=== PATIENT | male | born 1980 | race African-American/Black ===

== ENCOUNTER 2025-03-03 11:19 | Inpatient (IN) | payer MEDICAID, SELFPAY ==
[2025-03-03] VITALS (8 sets, daily range): BP systolic 105–142; BP diastolic 67–95; PULSE 73–114; RESP 17–20; TEMP 36.4–36.8; O2SAT 92–99; BMI 21.9
--- NOTE | 2025-03-03 11:27 | XR_ITS ---
Examination: CT abdomen with intravenous contrast CT pelvis with intravenous contrast 2-D coronal reconstructions 2-D sagittal reconstructions Date and time of exam:March 03, 2025 1324 hours INDICATIONS: Vomiting painful urination today. CTDI: vol (mGy) 6.32 DLP: (mGycm) 129 Technique: Multiple axial sections of the abdomen and pelvis have been obtained. 64 slice high-resolution scanner used. 3 mm axial sections have been obtained, post intravenous injection 60 cc [id number] 2-D sagittal, coronal reconstructions obtained. Low dose protocols were performed. One or more of the following dose reduction techniques were used; automated exposure control, adjustment of the mA and/or KV according to patient size, use of iterative reconstruction technique. Findings: Intrahepatic biliary tract dilatation Gallbladder is not diagnostically visualized Spleen is not enlarged No pancreatic mass No renal or ureteral calculi, no hydronephrosis Abundant stool throughout the colon including in the rectal region Mediolateral prostate dimension 5 cm No bladder mass The osseous structures are intact IMPRESSION: Abnormal intrahepatic biliary tract dilatation, recommend hepatobiliary sonography follow-up Gallbladder is not diagnostically visualized Very large amounts of stool throughout the entire colon
--- NOTE | 2025-03-03 11:28 | XR_ITS ---
Examination: AP chest single view Technique one AP portable upright chest single view March 03, 2025 1137 hours INDICATIONS: Chest pain and vomiting today. FINDINGS: Normal heart size Surgical clips upper left mediastinum No aspiration pneumonia or pulmonary edema IMPRESSION: No aspiration pneumonia
--- NOTE | 2025-03-03 11:29 | EDNOTE_ITS ---
<Statement entered by Candy Cardona MD - 03/11/25 06:24> As co-signing physician, I was present and available for consult prn. I concur with the plan and care as documented by the midlevel provider. ED Seizures RME/HPI General Chief Complaint: Seizure Stated Complaint: SEIZURES Time Seen by Provider: 03/03/25 11:24 Arrival date/time: 03/03/25 11:19 RME / HPI RME / HPI Narrative: 44-year-old male patient with significant history of schizoaffective disorder, bipolar type, intellectual disability, diabetes mellitus, type II, seizure disorder, gastroesophageal reflux, came in for evaluation regarding seizure. Onset of symptoms about earlier today as [id number] seizure, each lasting for 3 to 5 minutes according to caregiver. Patient was sitting down when it happened. There was no trauma involved. Patient was given intranasal Valium which totally stopped the seizure. According to patient's MD in [facility], patient has been taking his seizure medication with good compliance. Patient was noted to be having vomiting for the last few weeks, it comes and goes. No fever was noted no diarrhea was noted. Patient also complained of dysuria for several days now. No other complaints noted. On my initial evaluation patient is back to baseline. Related Data Home Medications ?Medication ?Instructions ?Recorded ?Confirmed atorvastatin 40 mg tablet 40 mg PO HS 06/10/18 3 chlorpromazine 100 mg tablet 300 mg PO QHSPRN 06/10/18 10/03/22 diphenhydramine HCl 50 mg capsule 100 mg PO HS 8 10/03/22 Held on 10/06/22. Instructions: Resume on 10/07/22. gabapentin 100 mg capsule 600 mg PO BID 06/10/1810/03 lisinopril 5 mg tablet 5 mg PO QDAY 06/10/18 sitagliptin phosphate 100 mg tablet 100 mg PO QDAY 06/10/18 aripiprazole lauroxil 882 mg/3.2 882 mg Bipolar Disord er 10/03/22 mL suspension, ext.rel. IM syringe divalproex 500 mg tablet,delayed 1,000 mg PO HS 10/03/22 release docusate sodium 100 mg capsule 200 mg PO QHSPRN PRN Ps ychosis 10/03/22 10/03/22 (Colace) quetiapine 50 mg tablet 450 mg PO QHSPRN 10/03/22 Allergies Allergy/AdvReac Type Severity Reaction Status Date / Time ibuprofen Allergy Verified 03/03/25 11:31 Review of Systems Review of Systems Narrative Review of Systems: Review of system reviewed and within normal limits except mentioned in HPI ED Exam Narrative Physical exam: VITAL SIGNS: Reviewed. GENERAL APPEARANCE: Alert and interactive, follows commands, no acute distress, HEAD AND FACE: Non-traumatic. ENT: PERRL, pink conjunctivitis, eyelid no trauma, Mucous membrane moist. NECK: Supple, nontender, no nuchal rigidity. CHEST: No tenderness, no crepitus, no paradoxical movement, no retractions. LUNGS: Clear, well ventilated, symmetric, no rales, no wheezing, no ronchi, no stridor, good breath sounds bilaterally. HEART: Regular rate, regular rhythm, no murmur, no gallops. ABDOMEN: Soft, positive bowel sounds, nondistended, no guarding, nontender, no rebound, no masses, RECTAL: Deferred. GENITAL: Deferred. NEUROLOGICAL: Gross motor function intact sensory function intact, Appropriate for age. MUSCULOSKELETAL: low back nontender, full range of motion. EXTREMITIES: Nontender, full range of motion. SKIN: Color pink, dry, no rash, no lacerations, no abrasions, no contusions. LYMPHATICS: Deferred. Course Quality Measures none Orders Category Date Time Status Bedside COVID-19 Antigen Test NOW Care 03/03/25 11:24 Active COVID-19 Screening Questionnaire NOW Care 03/03/25 15:[address] Screening NOW Care 03/03/25 11:27 Active Decision to Admit X1 Care 03/03/25 15:11 Completed Consult to Gastroenterology Stat Cons 03/03/25 15:[address] abdomen pelvis w con Stat Exams 03/03/25 11:27 Completed US gall bladder Stat Exams 03/03/25 15:03 Completed XR chest 1V Stat Exams 03/03/25 11:28 Completed Acetone [Beta Hydroxybutyrate] Stat Lab 03/03/25 11:46 Completed CBC [CBC] Stat Lab 03/03/25 11:46 Completed CMP [Comprehensive Metabolic Panel] Stat Lab 03/03/25 11:46 Completed Hemoglobin A1C [Glycohemoglobin w (eAG)] Stat Lab 03/03/25 11:46 Completed Lactic Acid [Lactate (Lactic Acid)] Stat Lab 03/03/25 11:46 Completed Lactic Acid, 3 HR Stat Lab 03/03/25 16:43 Completed Misc Send Out* Stat Lab 03/03/25 16:43 Received UA, C/S IF [Urinalysis, C/S if Indicated] Stat Lab 03/03/25 14:11 Completed Famotidine Inj [Pepcid Inj] Med 03/03/25 11:28 Discontinued 20 mg IVP X1 ONE Metoclopramide Inj [Reglan Inj] Med 03/03/25 11:28 Discontinued 10 mg IVP X1 ONE Ringers Lactated 1000 ml [Lactated Ringers] 1,000 ml Med 03/03/25 11:28 Discontinued IV 999 mls/hr Vital Signs Vital signs: Vital Signs Temperature 98.2 F 03/03/25 11:23 Pulse Rate 114 H 03/03/25 11:23 Respiratory Rate 18 03/03/25 11:23 Blood Pressure 106/68 03/03/25 11:23 Pulse Oximetry (%) 97 03/03/25 11:23 Oxygen Delivery Method Room Air 03/03/25 11:23 Seizure MDM Narrative MDM Narrative:: 44-year-old male patient with significant history of schizoaffective disorder, bipolar type, intellectual disability, diabetes mellitus, type II, seizure disorder, gastroesophageal reflux, came in for evaluation regarding seizure. Onset of symptoms about earlier today as [id number] seizure, each lasting for 3 to 5 minutes according to caregiver. Patient was sitting down when it happened. There was no trauma involved. Patient was given intranasal Valium which totally stopped the seizure. According to patient's MD in [facility], patient has been taking his seizure medication with good compliance. Patient was noted to be having vomiting for the last few weeks, it comes and goes. No fever was noted no diarrhea was noted. Patient also complained of dysuria for several days now. No other complaints noted. On my initial evaluation patient is back to baseline. Patient's workup today all came back unremarkable. Except for lactic acid of 6.0, repeat lactic acid was noted to be 3.4. Urinalysis no UTI. Ultrasound of the gallbladder came back unremarkable. Chest x-ray also came back no sign of aspiration pneumonia, CT scan of the abdomen pelvis showed Abnormal intrahepatic biliary tract dilatation, recommend hepatobiliary sonography follow-up Gallbladder is not diagnostically visualized Very large amounts of stool throughout the entire colon Spoke with [facility] MD Dr. Obregon, who requested me to call Dr. Echevarria regarding patient's on and up intractable vomiting which could be the reason for his breakthrough seizure. Spoke with Dr. Echevarria, full time, discussed the case, and advised me to admit the patient for endoscopy in the morning. Patient data External records reviewed:: None Clinical information provided by:: patient Social determinants that could affect healthcare access:: none Patient has the following chronic illnesses:: Schizoaffective disorder bipolar disorder intellectual disability diabetes mellitus seizure disorder How is presenting disease/condition affected by chronic disease/condition?: exacerbated by Evaluation data The following diagnostics were reviewed and interpreted by me:: lab results and radiology exam(s) Lab and/or radiology exams considered but not ordered:: None Interpretation Summary: See results MDM Medications / Prescriptions Medications or Prescriptions considered but not ordered:: None Medication administrations:: Medication Administration History Acetaminophen (Acetaminophen 325 Mg Tablet) 650 mg PO Q6H PRN PRN Reason: Fever >100.5 or pain 1-3 Stop: 04/02/25 16:33 Hydrocodone Bitart/Acetaminophen (Hydrocodone/Apap 5/325 Tablet) 1 tab PO Q4HR PRN PRN Reason: Pain Scale 4-6 (Moderate) Stop: 03/08/25 16:38 Dextrose (Dextrose 50%-Water Inj 50 Ml Syringe) 25 ml IV Q15MIN PRN PRN Reason: BG 50-70 responsive npo pt Stop: 04/02/25 20:27 Dextrose (Dextrose 50%-Water Inj 50 Ml Syringe) 50 ml IV Q15MIN PRN PRN Reason: BG <50 OR BG <70 & pt unresponsive Stop: 04/02/25 20:27 Docusate Sodium (Docusate Sod 100 Mg Capsule) 100 mg PO QDAY PRN; Protocol PRN Reason: CONSTIPATION Stop: 04/02/25 16:38 Glucagon (Glucagon Inj 1 Mg Vial) 1 mg IM Q15MIN PRN PRN Reason: BG <70, and no IV access Ondansetron HCl (Ondansetron Inj 2 Mg/Ml Inj 2 Ml) 4 mg IVP Q6H PRN; Protocol PRN Reason: NAUSEA OR VOMITING Stop: 04/02/25 16:38 Discontinued Medications Famotidine (Famotidine Inj 10 Mg/Ml Vial 2 Ml) 20 mg IVP X1 ONE Stop: 03/03/25 11:29 Last Admin: 03/03/25 12:22 Dose: 20 mg Documented By: CG Lactated Ringer's (Lactated Ringers) 1,000 mls @ 999 mls/hr IV .Q1H1M ONE Stop: 03/03/25 12:28 Last Infusion: 03/03/25 14:03 Dose: Infused Documented By: Admin: 03/03/25 12:22 Dose: 999 mls/hr Documented By: CG Metoclopramide HCl (Metoclopramide Inj 5 Mg/Ml Vial 2 Ml) 10 mg IVP X1 ONE; Protocol Stop: 03/03/25 11:29 Last Admin: 03/03/25 12:22 Dose: 10 mg Documented By: CG Reglan Pepcid and IV fluids. Consultations Consultation(s) initiated? (list below): Yes Consultation #1 (Physician, Specialty, Details): Dr. Echevarria, discussed case thank you Dr. Echevarria Diagnosis Seizure Differential Diagnosis: intractable seizure disorder, focal seizure and generalized seizure Most likely diagnosis given after review of the tests above:: Intractable nausea vomiting, seizure disorder, breakthrough seizure. Admission Indicated Admission indicated?: indicated Explain why admission is indicated or not indicated:: For further management. Admission Request Was there a request for admission?: Yes Admission Attestation Admission request attestation: Discussed case with [Dr. Starks] from Hospitalist service regarding admission. Discussed patients ED course, exam findings, labs, and radiology results. The Hospitalist [agrees] to accept the patient for admission. Disposition Plan Disposition Plan: Admit Discharge Plan Plan Patient Disposition: Admit Acute Care w/in Hospital Problem List Clinical Impression: Breakthrough seizure, Vomiting
[2025-03-03 12:02] LABS: Basophils # (Auto) 0.0 Thou/mm3 (0.0-0.2); Basophils % (Auto) 1 % (0-2.5); Eosinophils # (Auto) 0.3 Thou/mm3 (0.0-0.5); Eosinophils % (Auto) 7 % (0-10); Hematocrit 35.3 % (41.0-53.0); Hemoglobin 11.6 g/dL (13.5-16.0); Immature Granulocytes Auto 0.01 Thou/mm3 (0.00-0.00); Lymphocytes # (Auto) 0.9 Thou/mm3 (1.0-4.8); Lymphocytes % (Auto) 20 % (10-50); Mean Corpuscular HGB Conc 32.9 g/dl (31.0-37.0); Mean Corpuscular Hemoglobin 32.3 pg (25.0-35.0); Mean Corpuscular Volume 98 fL (80-100); Monocytes # (Auto) 0.4 Thou/mm3 (0.0-0.8); Monocytes % (Auto) 10 % (0-12); Neutrophils # (Auto) 2.8 Thou/mm3 (1.8-7.7); Neutrophils % (Auto) 62 % (37-80); Nucleated Red Blood Cell # 0.00 Thou/mm3 (0.00-0.00); Nucleated Red Blood Cell % 0 /100 WBC (0); Platelet Count 201 Thou/mm3 (140-440); RDW Standard Deviation 49.1 fL (35.1-43.9); Red Blood Count 3.59 Miln/mm3 (4.50-5.90); White Blood Count 4.4 Thou/mm3 (3.8-10.6)
[2025-03-03 12:04] LABS: Beta Hydroxybutyrate 0.1 mmol/L (<0.6)
[2025-03-03 12:07] LABS: Lactate (Lactic Acid) 7.0 mMol/L (0.4-2.0)
[2025-03-03 12:21] LABS: Glucose Estimated Average 143 mg/dL (80-131); Hemoglobin A1C 6.6 % Hgb (4.8-6.0)
[2025-03-03] MEDS: FAMOTIDINE INJ 10 MG/ML VIAL 2 ML 20 MG IVP (12:22)
[2025-03-03] MEDS: METOCLOPRAMIDE INJ 5 MG/ML VIAL 2 ML 10 MG IVP (12:22)
[2025-03-03] MEDS: RINGERS LACTATED 1000 ML 1,000 ML 999 ML IV (12:22)
[2025-03-03 12:51] LABS: Alanine Aminotransferase 10 U/L (10-49); Albumin, Serum 3.9 gm/dL (3.5-5.0); Albumin/Globulin Ratio 1.9 (1.2-2.2); Alkaline Phosphatase 60 U/L (46-116); Anion Gap 14 (7-16); Aspartate Amino Transferase 17 U/L (0-34); BUN/Creatinine Ratio 19 Ratio (12-20); Bilirubin,Total 0.2 mg/dL (0.3-1.2); Blood Urea Nitrogen 15 mg/dL (9-23); Calcium 9.4 mg/dL (8.3-10.6); Calcium (Corrected) 9.5 mg/dL (8.5-10.1); Carbon Dioxide 26.5 mMol/L (20.0-31.0); Chloride 98 mMol/L (98-107); Creatinine (Component) 0.8 mg/dL (0.6-1.3); Estimated Creatinine Clearance 138.9 mL/min (>60); Globulin 2.1 gm/dL (2.3-3.5); Glucose 196 mg/dL (74-106); Osmolality,Calculated 281 (275-295); Potassium 4.4 mMol/L (3.4-5.1); Sodium 138 mMol/L (136-145); Total Protein 6.0 gm/dL (5.7-8.2); eGFR > 60 See Note
[2025-03-03 14:19] LABS: Collection Type, Urine Clean Catch
[2025-03-03 14:30] LABS: Bilirubin,Urine Negative (Negative); Blood,Urine Negative (Negative); Clarity,Urine Clear (Clear/Hazy); Color,Urine Yellow (Lt Yel-Yel); Culture Indicated,Urine Not Indicated; Glucose, Urine 1+ (Negative); Hyaline Casts,Urine < 1 /hpf (0-1); Ketones,Urine 1+ (Negative); Leukocyte Esterase,Urine Negative (Negative); Nitrite,Urine Negative (Negative); PH,Urine 6.5 (5.0-7.0); Protein,Urine Negative (Neg - Trace); RBC,Urine 1 /hpf (0-3); Specific Gravity,Urine 1.025 (1.001-1.035); Squamous Epithelial Cell,Urine < 1 /hpf (0-5); Urobilinogen,Urine Negative mg/dL (0.0-1.0); WBC,Urine 1 /hpf (0-5)
[2025-03-03 14:54] LABS: Reflex Lactate? Y
--- NOTE | 2025-03-03 15:03 | XR_ITS ---
Examination: Abdomen sonogram, Limited Date and time of exam: March 03, 2025 1521 hours INDICATIONS: Abdominal pain with vomiting today Technique: Real-time mendoza scale transabdominal sonographic images of the upper abdomen obtained. Findings: Normal gallbladder. Normal common bile duct 0.2 cm Pancreas obscured by bowel gas Liver 14.8 cm fatty infiltration Normal hepatopedal portal venous flow Patent IVC IMPRESSION: Negative for cholelithiasis, negative for cholecystitis Normal common bile duct
[2025-03-03 16:53] LABS: Misc Send Out* See Sep Rpt
[2025-03-03 16:54] LABS: Lactic Acid, 3 HR 3.4 mMol/L (0.4-2.0)
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
--- NOTE | 2025-03-03 19:20 | PD.IMCONS ---
HPI Data of Consult Requesting Physician: Erwin Meneses DO Primary Care Provider: Physician No Primary/Family Consult Narrative Reason for consult: Nausea vomiting History of present illness: 44 is a male evaluated at request of the ER physician and the PCP at the [facility] for recurrent nausea vomiting Patient was brought into the emergency room because he had [id number] seizures lasting 2 to 3 minutes requiring intranasal Valium and it calm the seizures down No history obtainable from the patient as he is intellectually challenged From the chart review patient has schizoaffective disorder bipolar intact reducible seizure disorder Gastrosoft reflux hyperlipidemia essential hypertension CT scan of the abdomen pelvis done with contrast in the ER shows gallbladder could not be seen intrahepatic bile dilatation but normal LFTs At my request gallbladder sono was done which showed normal gallbladder liver liver size of 14.8 cm and fatty infiltration of the liver 11/26/2022 [facility] scan with ejection fraction showed ejection fraction to be about 63% cc:: cc: Erwin Meneses DO Review of Systems Review of Systems ROS Unobtainable: unobtainable due to medical condition Past Medical History Surgical History OTHER SURGICAL HX: As in the history of present illness Meds Home Medications and Allergies Home Medications ?Medication ?Instructions ?Recorded ?Confirmed ?Type atorvastatin 40 mg tablet 40 mg PO HS 06/10/18 10/03/22 History chlorpromazine 100 mg tablet 300 mg PO QHSPRN 06/10/18 10/03/22 History diphenhydramine HCl 50 mg capsule 100 mg PO HS 06/10/18 10/03/22 History Held on 10/06/22. Instructions: Resume on 10/07/22. gabapentin 100 mg capsule 600 mg PO BID 06/10/18 10/03/22 History lisinopril 5 mg tablet 5 mg PO QDAY 06/10/18 10/03/22 History sitagliptin phosphate 100 mg tablet 100 mg PO QDAY 06/10/18 06/10/18 History aripiprazole lauroxil 882 mg/3.2 882 mg Bipolar Disorder 10/03/22 History mL suspension, ext.rel. IM syringe divalproex 500 mg tablet,delayed 1,000 mg PO HS 10/03/22 10/03/22 History release docusate sodium 100 mg capsule 200 mg PO QHSPRN PRN Psychosis 10/03/22 10/03/22 History (Colace) quetiapine 50 mg tablet 450 mg PO QHSPRN 10/03/22 10/03/22 History Allergies Allergy/AdvReac Type Severity Reaction Status Date / Time ibuprofen Allergy Verified 03/03/25 11:31 Exam Vital Signs Temp Pulse Resp BP Pulse Ox O2 Del Method 98.0 F 79 18 142/95 H 98 Room Air 03/03/25 18:14 03/03/25 18:14 03/03/25 18:14 03/03/25 18:14 03/03/25 18:14 03/03/25 18:14 Routine Respiratory Exam Comments: Normal to auscultation Routine Abdominal Exam Comments: Soft nontender Results Labs 03/03/25 11:46 03/03/25 11:46 Labs: Short CBC 03/03/25 Range/Units 11:46 WBC 4.4 (3.8-10.6) Thou/mm3 Hgb 11.6 L (13.5-16.0) g/dL Hct 35.3 L (41.0-53.0) % Plt Count 201 (140-440) Thou/mm3 BMP 03/03/25 11:46 Sodium 138 Potassium 4.4 Chloride 98 Carbon Dioxide 26.5 BUN 15 Creatinine 0.8 Glucose 196 H Calcium 9.4 Liver Function 03/03/25 Range/Units 11:46 Total Bilirubin 0.2 L (0.3-1.2) mg/dL AST 17 (0-34) U/L ALT 10 (10-49) U/L Alkaline Phosphatase 60 (46-116) U/L Albumin 3.9 (3.5-5.0) gm/dL Urine 03/03/25 Range/Units 14:11 Urine Color Yellow (Lt Yel-Yel) Urine Clarity Clear (Clear/Hazy) Urine pH 6.5 (5.0-7.0) Ur Specific [place] 1.025 (1.001-1.035) Urine Protein Negative (Neg - Trace) Urine Glucose (UA) 1+ A (Negative) Assessment and Plan Additional Assessment & Plan Additional Plan: # Recurrent nausea vomiting etiology uncertain could be gastric motility disorder gastric outlet obstruction peptic ulcer disease Suggestions Consent will be obtained for fiberoptic esophagogastroduodenoscopy with possible biopsy possible therapeutic intervention under intravenous moderate sedation N.p.o. at midnight tonight except p.o. meds # Intraoperatively dilatation normal LFTs no stones in the gallbladder Just continue to monitor Might consider MRCP in the future Other medical problems include Grand mal seizure disorder intellectually challenged Diabetes mellitus type 2 essential hypertension Schizoaffective disorder Bipolar disorder Thank you very much for the opportunity to participate in care of this patient
[2025-03-04] VITALS (15 sets, daily range): BP systolic 101–150; BP diastolic 71–106; PULSE 61–92; RESP 11–20; TEMP 35.9–36.6; O2SAT 95–100
[2025-03-04 00:07] LABS: Lithium 0.64 mEq/L (1.00-1.20)
[2025-03-04 05:35] LABS: Basophils # (Auto) 0.0 Thou/mm3 (0.0-0.2); Basophils % (Auto) 1 % (0-2.5); Eosinophils # (Auto) 0.3 Thou/mm3 (0.0-0.5); Eosinophils % (Auto) 9 % (0-10); Hematocrit 34.3 % (41.0-53.0); Hemoglobin 11.4 g/dL (13.5-16.0); Immature Granulocytes Auto 0.01 Thou/mm3 (0.00-0.00); Lymphocytes # (Auto) 1.3 Thou/mm3 (1.0-4.8); Lymphocytes % (Auto) 37 % (10-50); Mean Corpuscular HGB Conc 33.2 g/dl (31.0-37.0); Mean Corpuscular Hemoglobin 32.6 pg (25.0-35.0); Mean Corpuscular Volume 98 fL (80-100); Monocytes # (Auto) 0.4 Thou/mm3 (0.0-0.8); Monocytes % (Auto) 11 % (0-12); Neutrophils # (Auto) 1.4 Thou/mm3 (1.8-7.7); Neutrophils % (Auto) 41 % (37-80); Nucleated Red Blood Cell # 0.00 Thou/mm3 (0.00-0.00); Nucleated Red Blood Cell % 0 /100 WBC (0); Platelet Count 188 Thou/mm3 (140-440); RDW Standard Deviation 48.2 fL (35.1-43.9); Red Blood Count 3.50 Miln/mm3 (4.50-5.90); White Blood Count 3.4 Thou/mm3 (3.8-10.6)
[2025-03-04 05:50] LABS: INR 1.1 (0.9-1.3); Partial Thromboplastin Time 27.6 Seconds (22.0-36.0); Prothrombin Time 11.6 Seconds (9.0-12.2)
[2025-03-04 06:08] LABS: Alanine Aminotransferase < 7 U/L (10-49); Albumin, Serum 3.8 gm/dL (3.5-5.0); Albumin/Globulin Ratio 1.9 (1.2-2.2); Alkaline Phosphatase 58 U/L (46-116); Anion Gap 6 (7-16); Aspartate Amino Transferase 14 U/L (0-34); BUN/Creatinine Ratio 18 Ratio (12-20); Bilirubin,Total 0.2 mg/dL (0.3-1.2); Blood Urea Nitrogen 11 mg/dL (9-23); Calcium 9.5 mg/dL (8.3-10.6); Calcium (Corrected) 9.7 mg/dL (8.5-10.1); Carbon Dioxide 30.6 mMol/L (20.0-31.0); Cardiac Risk Estimate 2.6 RATIO (4.0-6.7); Chloride 102 mMol/L (98-107); Cholesterol 126 mg/dL (132-200); Creatinine (Component) 0.6 mg/dL (0.6-1.3); Estimated Creatinine Clearance 172.1 mL/min (>60); Globulin 2.0 gm/dL (2.3-3.5); Glucose 122 mg/dL (74-106); HDL Cholesterol 49 mg/dL (40-60); LDL Cholesterol,Calculated 66 mg/dL (0-130); Magnesium 1.6 mg/dL (1.6-2.6); Osmolality,Calculated 277 (275-295); Phosphorous 4.3 mg/dL (2.4-5.1); Potassium 4.9 mMol/L (3.4-5.1); Sodium 139 mMol/L (136-145); Total Protein 5.8 gm/dL (5.7-8.2); Triglycerides 55 mg/dL (30-150); eGFR > 60 See Note
[2025-03-04 09:39] LABS: Lactate (Lactic Acid) 0.8 mMol/L (0.4-2.0)
--- NOTE | 2025-03-04 10:01 | PC.SS ---
[employer] conducted bedside contact with the patient conduct initial assessment and to discuss discharge planning.? Patient possesses a past medical history of schizoaffective disorder bipolar type, intellectual disability, type 2 diabetes, seizure disorder, GERD.? Patient is from [facility].? At bedside with patient was [facility] staff, Julianna Cartagena.? [employer] obtained information from [facility] staff.? Patient has been a resident of [facility] for approximately 2 years.? Patient is verbal.? Patient does not utilize DME to assist with ambulation.? Patient does not utilize oxygen.? Patient requires direction to complete ADL?s.? Patient?s aunt, Ludy Villaseñor; is the patient?s medical decision maker.? [facility] primary care physician is Dr. Obregon.? Plan is for the patient to return to [facility] upon obtaining medical clearance.? [facility] will arrange transportation on behalf of the patient.? Patient will possess [facility] staff at bedside while admitted.? No further intervention required at this time, social contact worker will be available to address any further concerns.? Next of Kin: Ludy Villaseñor D/C Plan: [facility]
--- NOTE | 2025-03-04 13:18 | PC.NURSE ---
called [facility] and talked to dr. barksdale, for egd consent , still waiting for medical collections representative to respond.
[2025-03-04] MEDS: LITHIUM CARB 150 MG CAPSULE 450 MG PO (14:00)
--- NOTE | 2025-03-04 15:04 | ESPR_ITS ---
<Statement entered by Raudel Taylor MD - 03/04/25 15:58> I have reviewed the note and agree with the resident's assessment & plan with exceptions as below. I have personally reviewed labs, imaging, home meds/prior records, examined the patient, formulated and discussed management plan with the IM team. Patient examined at bedside today. Medicine reconciliation was done and showed a number of psych and seizure meds that were resumed including lithium and clozapine. Patient's lithium level was subtherapeutic at this time. Patient continued to improve, however we will get EGD done later for further workup of vomiting. Patient is not had a seizure overnight. Will order EKG for evaluation of QTc. Continue current management, repeat hematology and chemistry in the a.m. Raudel Taylor, PGY-2 Internal Medicine Documentation for date of: 03/04/25 Subjective Subjective Interval history: No acute events overnight. Patient seen and examined at bedside. Vitals and labs reviewed. Patient states he is doing well this morning. Patient denies having any seizures overnight or this morning. Patient denies fever, chest pain, shortness of breath, nausea, vomiting. Exam Vital Signs Temp Pulse Resp BP Pulse Ox O2 Del Method 97.8 F 77 14 134/85 H 100 Room Air 03/04/25 12:00 03/04/25 12:00 03/04/25 12:00 03/04/25 12:03/04/25 12:03/04/25 12:00 Narrative Exam General: No acute distress; A&Ox3 Skin: Warm, dry, intact, no obvious rash. HENT: NCAT, EOMI, not icteric. External ears normal. No rhinorrhea. Moist mucous membranes Cardiovascular: Regular rate and rhythm, no murmur, +S1/S2. Respiratory: Lungs CTAB GI: Negative Arguello's sign, Soft, nontender, non-distended. No guarding or rebound tenderness. Extremities: no edema, no cyanosis, no clubbing. Extremity pulses present Neuro: No focal deficits observed. Conversant, moving all extremities. No overt cerebellar signs/incoordination. Psychiatric: Cooperative, appropriate affect. Objective Labs 03/04/25 05:07 03/04/25 05:07 Labs: Laboratory Results - last 24 hr 03/03/25 03/04/25 03/04/25 16:43 05:07 09:31 WBC 3.4 L RBC 3.50 L Hgb 11.4 L Hct 34.3 L MCV 98 MCH 32.6 MCHC 33.2 RDW Std Deviation 48.2 H Plt Count 188 Neut % (Auto) 41 Lymph % (Auto) 37 [place] % (Auto) 11 Eos % (Auto) 9 Baso % (Auto) 1 Neut # (Auto) 1.4 L Lymph # (Auto) 1.3 [place] # (Auto) 0.4 Eos # (Auto) 0.3 Baso # (Auto) 0.0 Immature Gran # (Auto) 0.01 H Absolute Nucleated RBC 0.00 Immature Gran % 0 Nucleated RBC % 0 PT 11.6 INR 1.1 APTT 27.6 Sodium 139 Potassium 4.9 D Chloride 102 Carbon Dioxide 30.6 Anion Gap 6 L BUN 11 Creatinine 0.6 Estim Creat Clear Calc 172.1 eGFR > 60 BUN/Creatinine Ratio 18 Glucose 122 H D Calculated Osmolality 277 Lactic Acid 3.4 H 0.8 Calcium 9.5 Corrected Calcium 9.7 Phosphorus 4.3 Magnesium 1.6 Total Bilirubin 0.2 L AST 14 ALT < 7 L Alkaline Phosphatase 58 Total Protein 5.8 Albumin 3.8 Globulin 2.0 L Albumin/Globulin Ratio 1.9 Triglycerides 55 Cholesterol 126 L LDL Cholesterol, Calc 66 HDL Cholesterol 49 Cholesterol/HDL Ratio 2.6 L [place] 0.64 L Quality Measures Quality Measures VTE prophylaxis Assessment & Plan Assessment Current Active Medications: Generic Name Dose Route Start Last Admin Trade Name Freq PRN Reason Stop Dose Admin Acetaminophen 650 mg 03/03/25 16:34 Acetaminophen 325 Mg Tablet PO 04/02/25 16:33 Q6H PRN Fever >100.5 or pain 1-3 Hydrocodone Bitart/Acetaminophen 1 tab 03/03/25 16:39 Hydrocodone/Apap 5/325 Tablet PO 03/08/25 16:38 Q4HR PRN Pain Scale 4-6 (Moderate) Albuterol 2 puff 03/04/25 09:55 Albuterol Inh 8 Gm INH 04/03/25 09:54 Q4H PRN wheezing Atorvastatin Calcium 40 mg 03/04/25 21:00 Atorvastatin Calcium 20 Mg Tablet PO 04/03/25 20:59 HS SARA Clozapine 400 mg 03/04/25 21:00 Clozapine 50 Mg Tablet PO 04/03/25 20:59 HS SARA Dextrose 25 ml 03/03/25 20:28 Dextrose 50%-Water Inj 50 Ml Syringe IV 04/02/25 20:27 Q15MIN PRN BG 50-70 responsive npo pt Dextrose 50 ml 03/03/25 20:28 Dextrose 50%-Water Inj 50 Ml Syringe IV 04/02/25 20:27 Q15MIN PRN BG <50 OR BG <70 & pt unresponsive Diazepam 5 mg 03/04/25 07:49 Diazepam Inj 5 Mg/Ml Vial 2 Ml IVP Q4HR PRN SEIZURES Divalproex Sodium 1,000 mg 03/04/25 21:[address] 500 Mg Tablet.Dr PO 04/03/25 20:59 HS [facility] Docusate Sodium 100 mg 03/03/25 16:39 Docusate Sod 100 Mg Capsule PO 04/02/25 16:38 QDAY PRN CONSTIPATION Protocol Gabapentin 600 mg 03/04/25 21:00 Gabapentin 300 Mg Capsule PO 04/03/25 20:59 BID SARA Glucagon 1 mg 03/03/25 20:28 Glucagon Inj 1 Mg Vial IM Q15MIN PRN BG <70, and no IV access Insulin Human Lispro 0 unit 03/04/25 07:30 03/04/25 11:56 Insulin Lispro (Admelog) 1 Unit/0.01 Ml Unit SC 04/03/25 07:29 Not Given ACHS [facility] Protocol [place] Carbonate 450 mg 03/04/25 09:00 03/04/25 14:00 [place] Carb 150 Mg Capsule PO 04/03/25 08:59 450 mg QDAY SARA Administration Ondansetron HCl 4 mg 03/03/25 16:39 Ondansetron Inj 2 Mg/Ml Inj 2 Ml IVP 04/02/25 16:38 Q6H PRN NAUSEA OR VOMITING Protocol Pantoprazole Sodium 40 mg 03/04/25 09:00 03/04/25 11:57 Pantoprazole 40 Mg Tablet PO 04/03/25 08:59 Not Given QDAY SARA Plan Patient is a 44-year-old male with past medical history of schizoaffective disorder bipolar type, intellectual disability, type 2 diabetes, seizure disorder, GERD. Patient was admitted for workup and management of seizures with elevated lactic acidosis. #seizures #lactic acidosis #intractable nausea/vomiting Lactic acidosis of 7.0 likely due to seizures today (post-ictal lactic acidosis) versus volume loss due to vomiting history for 3 weeks on and off. Less likely biliary obstruction given gallbladder ultrasound was negative versus less likely infectious etiology versus less likely metabolic derangements. Patient's seizures may be due to sub therapeutic treatment. Patient reported 3 seizures that lasted 3 to 5 minutes each. Reported that it is his first seizure in 3 years. Home med of divalproex 1000 mg extended release at bedtime. Denies head strike or any other trauma. Patient was given Valium intranasally which stopped the seizure. Patient was given 1 L bolus of lactated Ringer's. 03/04: patient denies vomiting, states nausea isn't bothering him this morning. [place] levels found to be low 0.64. ? Restarted patient's clozapine 400 mg, monitor for agranulocytosis - restarted depakote 1000 mg - restarted gabapentin 600 mg - restarted lithium 450 mg - Will follow up VPA levels ? Follow-up lactate ordered #Type 2 diabetes Hemoglobin A1c on admission of 6.6 Patient has a history of type 2 diabetes for which she takes metformin 1000 mg twice daily AC and sitagliptin 50 mg daily and insulin sliding scale twice daily AC. ? Will monitor glucose - on insulin sliding scale #normocytic anemia Patient's hemoglobin on admission 11.6 Likely due to inadequate p.o. intake On admission, patient denies dizziness, fatigue, weakness ? Will continue to monitor cbc - will monitor for signs/symptoms of bleeding #GERD Patient's home meds of pantoprazole 40 mg delayed release at bedtime - Will hold protonix 40 mg pending EGD Hospital Management: Disposition: Tele Diet: NPO after midnight GI Prophylaxis: Protonix 40 mg qd after EGD Bowel Prophylaxis: Docusate DVT Prophylaxis: SCD's CODE STATUS: Full Code Patient plan of care was discussed with the attending physician, Dr. Meneses & senior resident Dr. Brandon Conley MD PGY-1 Attending Provider Attestation/Addendum I have discussed and was present for the essential components of the history, physical examination, diagnosis, and treatment plan with the resident. I agree with the patient's care as documented by the resident and amended herein by me. Ramesh Meneses DO. Although this document has been carefully reviewed, there may still be some phonetic and other typographical errors. These errors are purely grammatical due to imperfections in the software program and should not be construed in any way to compromise the substance of the patient's medical care during this visit.
--- NOTE | 2025-03-04 15:57 | EKG_ITS ---
[facility] Test Date: 2025-03-04 Pat Name: AVI DRISCOLL [facility] Machine Group Leader: ELYSSA : 1980 Requested By: Raudel Taylor Order Number: [id number] Reading MD: Raudel Taylor Measurements Intervals [place] Rate: 83 P: 61 MD: 164 QRS: 38 QRSD: 86 T: 7 QT: 332 QTc: 390 Interpretive Statements SINUS RHYTHM NONSPECIFIC ST & T-WAVE ABNORMALITY Compared to ECG 06/11/2018 20:20:19 No significant changes /store/S0/[id number].pdf
[2025-03-04] MEDS: ATORVASTATIN CALCIUM 20 MG TABLET 40 MG PO (20:51)
[2025-03-04] MEDS: DIVALPROEX SOD DR 500 MG TABLET.DR 1000 MG PO (20:51)
[2025-03-04] MEDS: GABAPENTIN 300 MG CAPSULE 600 MG PO (20:52)
[2025-03-04] MEDS: DOCUSATE SOD 100 MG CAPSULE PO (20:55)
[2025-03-05] VITALS: BP 116/80; PULSE 82; RESP 15; TEMP 36.5; O2SAT 94
[2025-03-05 04:00] VITALS: BP 121/84; PULSE 72; PULSE 73; RESP 17; TEMP 36.2; O2SAT 98
[2025-03-05 06:29] LABS: Basophils # (Auto) 0.0 Thou/mm3 (0.0-0.2); Basophils % (Auto) 1 % (0-2.5); Eosinophils # (Auto) 0.3 Thou/mm3 (0.0-0.5); Eosinophils % (Auto) 11 % (0-10); Hematocrit 39.1 % (41.0-53.0); Hemoglobin 13.5 g/dL (13.5-16.0); Immature Granulocytes Auto 0.01 Thou/mm3 (0.00-0.00); Lymphocytes # (Auto) 1.1 Thou/mm3 (1.0-4.8); Lymphocytes % (Auto) 35 % (10-50); Mean Corpuscular HGB Conc 34.5 g/dl (31.0-37.0); Mean Corpuscular Hemoglobin 33.2 pg (25.0-35.0); Mean Corpuscular Volume 96 fL (80-100); Monocytes # (Auto) 0.4 Thou/mm3 (0.0-0.8); Monocytes % (Auto) 14 % (0-12); Neutrophils # (Auto) 1.2 Thou/mm3 (1.8-7.7); Neutrophils % (Auto) 39 % (37-80); Nucleated Red Blood Cell # 0.00 Thou/mm3 (0.00-0.00); Nucleated Red Blood Cell % 0 /100 WBC (0); Platelet Count 176 Thou/mm3 (140-440); RDW Standard Deviation 48.3 fL (35.1-43.9); Red Blood Count 4.07 Miln/mm3 (4.50-5.90); White Blood Count 3.1 Thou/mm3 (3.8-10.6)
[2025-03-05 07:09] LABS: Alanine Aminotransferase 12 U/L (10-49); Albumin, Serum 4.1 gm/dL (3.5-5.0); Albumin/Globulin Ratio 1.8 (1.2-2.2); Alkaline Phosphatase 60 U/L (46-116); Anion Gap 11 (7-16); Aspartate Amino Transferase 29 U/L (0-34); BUN/Creatinine Ratio 17 Ratio (12-20); Bilirubin,Total 0.2 mg/dL (0.3-1.2); Blood Urea Nitrogen 12 mg/dL (9-23); Calcium 9.8 mg/dL (8.3-10.6); Calcium (Corrected) 9.8 mg/dL (8.5-10.1); Carbon Dioxide 27.4 mMol/L (20.0-31.0); Chloride 99 mMol/L (98-107); Creatinine (Component) 0.7 mg/dL (0.6-1.3); Estimated Creatinine Clearance 142.9 mL/min (>60); Globulin 2.3 gm/dL (2.3-3.5); Glucose 243 mg/dL (74-106); Magnesium 1.2 mg/dL (1.6-2.6); Osmolality,Calculated 281 (275-295); Phosphorous 5.0 mg/dL (2.4-5.1); Potassium 5.5 mMol/L (3.4-5.1); Sodium 137 mMol/L (136-145); Total Protein 6.4 gm/dL (5.7-8.2); eGFR > 60 See Note
[2025-03-05 08:00] VITALS: BP 130/77; PULSE 68; PULSE 99; RESP 16; TEMP 36.1; O2SAT 96
[2025-03-05] MEDS: LITHIUM CARB 150 MG CAPSULE 450 MG PO (08:04)
[2025-03-05] MEDS: GABAPENTIN 300 MG CAPSULE 600 MG PO (08:04)
[2025-03-05] MEDS: PANTOPRAZOLE 40 MG TABLET PO (08:04)
[2025-03-05] MEDS: INSULIN LISPRO (AdmeLOG) 1 UNIT/0.01 ML UNIT SC ×2 (08:05→11:49)
[2025-03-05 09:11] VITALS: PULSE 82
[2025-03-05] MEDS: ALBUTEROL RT 2.5 MG/0.5 ML NEBU INH (09:11)
[2025-03-05 09:17] VITALS: PULSE 89; RESP 14; O2SAT 99
[2025-03-05] MEDS: POLYETHYLENE GLYCOL 17 GM PACKET PO (09:54)
[2025-03-05] MEDS: INSULIN HUM REGULAR 1 UNIT/0.01 ML (PER UNIT) 5 UNIT IV (09:55)
[2025-03-05] MEDS: Magnesium Sulfate 4 GM Ivpb 4 GM/50 ML BAG IV (09:55)
[2025-03-05] MEDS: DOCUSATE SOD 100 MG CAPSULE PO (11:09)
[2025-03-05 11:28] LABS: Potassium 5.0 mMol/L (3.4-5.1)
[2025-03-05] MEDS: MAGNESIUM CITRATE 300 ML BTL PO (11:50)
[2025-03-05 12:00] VITALS: BP 112/89; PULSE 82; PULSE 89; RESP 16; TEMP 36.8; O2SAT 100
--- NOTE | 2025-03-05 14:24 | PC.SS ---
Addendum entered by Danielle Hernandez 03/05/25 14:25: DC back to [facility] Original Note: Rounding: Plan for DC once pt has a bowel movement
--- NOTE | 2025-03-05 16:23 | ESDS_ITS ---
<Statement entered by Raudel Taylor MD - 03/06/25 16:15> I have reviewed the note and agree with the resident's assessment & plan with exceptions as below. I have personally reviewed labs, imaging, home meds/prior records, examined the patient, formulated and discussed management plan with the IM team. Pt examined at bedside today. Pt continuing to approved and is cleared for medical discharge. He will need to follow up with outpatient neurology for management of seizure medicines. His lithium level was subtherapeutic, however unsure if this is for management of mood disorder or seizure. Patient will return back to [facility]. Patient was then discharged with the following instructions listed below. Raudel Taylor, PGY-2 Internal Medicine Planned Discharge Date 03/05/25 DS: Providers Provider Date of admission: 03/03/25 15:46 Primary care physician: Physician Charline Primary/Family Admitting Provider: Erwin Meneses DO Attending Provider on Admission: Erwin Meneses DO Consults: 03/03/25 15:03 Consult to Gastroenterology Stat Comment: Intractable vomiting Consulting Provider: Ann Echevarria Attending Provider on DC: Erwin Meneses DO Discharging Provider: Erwin Meneses DO DS: Diagnosis Problem List Completed Was Problem List Reviewed/Reconciled?: Yes Hospital Course Hospital Course Hospital course: Patient is a 44-year-old male with past medical history of schizoaffective disorder bipolar type, intellectual disability, type 2 diabetes, seizure disorder, GERD presented to the ED at [facility] with chief complaint of seizures. Patient was admitted for workup and management of seizures with elevated lactic acidosis of 7.0. Patient had 3 [id number] seizures, status epilepticus, was given intranasal diazepam which resolved patient's symptoms. Patient has also been complaining of chronic vomiting. Patient's hemoglobin was stable since admission at 11.6. GI was consulted for chronic vomiting and completed an EGD procedure which showed esophagitis and gastritis, biopsies were obtained. Patient's psych and seizure meds were obtained through [facility]. Notably, patient has a history of lithium toxicity on record. [place] level on this admission was noted to be low at 0.64. Patient also noted to be constipated for days without a bowel movement. CT Abdomen/Pelvis noted 'very large amounts of stool throughout the entire colon. Patient was given medication to help with that and had a successful bowel movement before discharge. Patient was seizure free during this hospitalization and left clinically stable. Discharge Instructions Follow-up with your PCP within 1 week Follow up on the pathology results to rule out malignancy Take your medicines as prescribed Return to ED if your symptoms worsen or return We recommend getting a repeat CBC and CMP within one week as your white blood cell count was low and potassium was high Admission Diagnosis #seizures #lactic acidosis #intractable nausea/vomiting #Type 2 diabetes #normocytic anemia #GERD Patient plan of care was discussed with the attending physician, Dr. Ventura Conley MD PGY-1 Time Spent with Patient Time attestation: Total time spent providing and/or coordinating discharge services: Time spent: Greater than 30 minutes Exam Vital Signs Temp Pulse Resp BP Pulse Ox O2 Del Method O2 Flow Rate 98.2 F 82 16 112/89 H 100 Room Air 3 03/05/25 12:00 03/05/25 12:00 03/05/25 12:00 03/05/25 12:00 03/05/25 12:00 03/05/25 12:00 03/04/25 15:55 Narrative Exam General: No acute distress; A&Ox3 Skin: Warm, dry, intact, no obvious rash. HENT: NCAT, EOMI, not icteric. External ears normal. No rhinorrhea. Moist mucous membranes Cardiovascular: Regular rate and rhythm, no murmur, +S1/S2. Respiratory: Lungs CTAB GI: Negative Arguello's sign, Soft, nontender, non-distended. No guarding or rebound tenderness. Extremities: no edema, no cyanosis, no clubbing. Extremity pulses present Neuro: No focal deficits observed. Conversant, moving all extremities. No overt cerebellar signs/incoordination. Psychiatric: Cooperative, appropriate affect. Discharge Plan Plan Patient Disposition: HOME (Self Care) Disposition Comment: [facility] Patient condition on transfer: Stable Care Plan Goals: Discharge instructions Follow-up with your PCP within 1 week Follow up on the pathology results to rule out malignancy Take your medicines as prescribed Return to ED if your symptoms worsen or return We recommend getting a repeat CBC and CMP within one week as your white blood cell count was low and potassium was high Prescriptions/Referrals Prescriptions/Med Rec: Continued atorvastatin 40 mg Tablet 40 mg PO HS sitagliptin phosphate 100 mg Tablet 50 mg PO QDAY lisinopril 5 mg Tablet 5 mg PO QDAY gabapentin 100 mg Capsule 600 mg PO BID divalproex 500 mg tablet,delayed release (DR/EC) 1,000 mg PO HS docusate sodium [Colace] 100 mg Capsule 200 mg PO BID clotrimazole [Antifungal (clotrimazole)] 1 % cream 1 applic topical BID Humulin R Regular U-100 Insuln 100 unit/mL solution 1 sliding scale dose subcut BID Rx Instructions: sliding scale metformin 1,000 mg tablet 1,000 mg PO BID cholecalciferol (vitamin D3) [Vitamin D3] 25 mcg (1,000 unit) tablet 25 mcg PO QDAY cariprazine 6 mg capsule 6 mg PO QDAY clozapine 200 mg tablet,disintegrating 400 mg PO HS lithium carbonate 450 mg tablet extended release 450 mg PO QDAY neomycin-polymyxin B-dexameth Drops,Suspension 1 drp ophthalmic (eye) 4XD Rx Instructions: one drop in right eye for corneal ulcer Sterile Lubricant 0.7 % drops, liquid gel 2 drp ophthalmic (eye) HS lactulose 20 gram packet 20 g PO QDAY polyethylene glycol 3350 [Miralax] 17 gram powder in packet 17 g PO BID sennosides [Laxative (sennosides)] 8.6 mg tablet 17.2 mg PO HS diazepam 20 mg/2 spray (10mg/0.1mL x2) spray,non-aerosol 20 mg intranasal Q4H PRN (Reason: seizures) Rx Instructions: administer 1 spray in each nostril albuterol (refill) 90 mcg/actuation aerosol 180 mcg inhalation Q4H PRN (Reason: wheezing) magnesium hydroxide [Milk of Magnesia] 400 mg/5 mL suspension 30 ml PO Q72H PRN (Reason: constipation) Rx Instructions: 30 mL orally PRN; acetaminophen [Tylenol] 325 mg tablet 650 mg PO Q6H PRN (Reason: pain) alum-mag hydroxide-simeth [Antacid Maximum Strength] 400-400-40 mg/5 mL suspension 20 ml PO Q6H PRN (Reason: upset stomach) Changed pantoprazole 40 mg tablet,delayed release (DR/EC) 40 mg PO BID 30 Days Qty: 60 0RF Discontinued chlorpromazine 100 mg Tablet 300 mg PO QHSPRN diphenhydramine HCl 50 mg Capsule 50 mg PO HS Referrals: No Primary/Family,Physician [Primary Care Provider] - Patient/Caregiver Discharge Instructions Discharge Activity: activity as tolerated Education Materials: [place], Diagnosing Epilepsy, ED Vomiting (Adult) Print Language: Panamanian Stand Alone Forms: [facility] Award Info., Patient Portal Info Letter Discharge Order Discharge Orders: Discharge (Routine); Ordered 03/05/25 Ordered By: Raudel Taylor Quality Discharge Quality Measures VTE prophylaxis MD Attestestation MD Attestation I have discussed and was present for the essential components of the discharge history, physical examination, diagnosis, and discharge treatment plan with the resident. I agree with the patient's discharge care as documented by the resident and amended herein by me. Ramesh Meneses DO. In short, 44-year-old male with significant past medical history of schizoaffective disorder, bipolar type, intellectual disability, seizure disorder, type 2 diabetes and GERD, presented a presented initially to the ER for intractable nausea vomiting and reported seizures, x 3. Patient significantly improved during hospital stay, he had no seizure-like activity was awake, alert, conversive during the entire stay, gastroenterology was consulted, EGD performed which demonstrated gastritis and esophagitis while on the PPI hence we have increased the dose of his pantoprazole to 40 mg twice daily for 30 days. Inflammation his GI tract may have been contributing to his symptoms. The patient had no additional seizure-like activity while in the hospital unfortunately, we did not have in-house neurology to physically evaluate him hence recommend close follow-up with neurology within 1 week of discharge for any medication adjustment that may need to occur considering patient is on several psychiatric and AEDs. He has had lithium toxicity in the past hence needs close follow-up. We answered all questions for the patient's prior to discharge Although this document has been carefully reviewed, there may still be some phonetic and other typographical errors. These errors are purely grammatical due to imperfections in the software program and should not be construed in any way to compromise the substance of the patient's medical care during this visit.
--- NOTE | 2025-03-05 18:55 | PD.IMPROG ---
Documentation for date of: 03/05/25 Subjective Subjective Interval history: Late entry for the note Case discussed with internal medicine team Okay to discharge patient back to [facility] I will see him there for follow-up upon his biopsies from the esophagus and stomach Exam Vital Signs Temp Pulse Resp BP Pulse Ox O2 Del Method O2 Flow Rate 98.2 F 82 16 112/89 H 100 Room Air 3 03/05/25 12:00 03/05/25 12:00 03/05/25 12:00 03/05/25 12:00 03/05/25 12:00 03/05/25 12:00 03/04/25 15:55 Objective Labs 03/05/25 05:26 03/05/25 11:12 Labs: Laboratory Results - last 24 hr 03/05/25 03/05/25 05:26 11:12 WBC 3.1 L RBC 4.07 L Hgb 13.5 D Hct 39.1 L MCV 96 MCH 33.2 MCHC 34.5 RDW Std Deviation 48.3 H Plt Count 176 Neut % (Auto) 39 Lymph % (Auto) 35 [place] % (Auto) 14 H Eos % (Auto) 11 H Baso % (Auto) 1 Neut # (Auto) 1.2 L Lymph # (Auto) 1.1 [place] # (Auto) 0.4 Eos # (Auto) 0.3 Baso # (Auto) 0.0 Immature Gran # (Auto) 0.01 H Absolute Nucleated RBC 0.00 Immature Gran % 0 Nucleated RBC % 0 Sodium 137 Potassium 5.5 H D 5.0 D Chloride 99 Carbon Dioxide 27.4 Anion Gap 11 BUN 12 Creatinine 0.7 Estim Creat Clear Calc 142.9 eGFR > 60 BUN/Creatinine Ratio 17 Glucose 243 H D Calculated Osmolality 281 Calcium 9.8 Corrected Calcium 9.8 Phosphorus 5.0 Magnesium 1.2 L Total Bilirubin 0.2 L AST 29 ALT 12 Alkaline Phosphatase 60 Total Protein 6.4 Albumin 4.1 Globulin 2.3 Albumin/Globulin Ratio 1.8 Impressions Impression: Gastritis biopsies pending Esophagitis biopsies pending Gastric motility disorder Okay to discharge we will see the patient in follow-up at [facility] Assessment & Plan A&P Narrative # Recurrent nausea vomiting etiology uncertain could be gastric motility disorder gastric outlet obstruction peptic ulcer disease Suggestions Consent will be obtained for fiberoptic esophagogastroduodenoscopy with possible biopsy possible therapeutic intervention under intravenous moderate sedation N.p.o. at midnight tonight except p.o. meds # Intraoperatively dilatation normal LFTs no stones in the gallbladder Just continue to monitor Might consider MRCP in the future Other medical problems include Grand mal seizure disorder intellectually challenged Diabetes mellitus type 2 essential hypertension Schizoaffective disorder Bipolar disorder Thank you very much for the opportunity to participate in care of this patient Time Spent With Patient Time: Total time spent is greater than 50% in coordination of care (as documented) at patient's floor/unit and/or counseling patient:
== END 2025-03-05 15:23 | disposition home or self-care (01) | DRG 53 ==
LOC: SERX 11:58 → SERHOLD 16:33 → S2NX 21:07
PROVIDERS: Specialist; Admitting Provider Student in an Organized Health Care Education/Training Program; Emergency Provider Nurse Practitioner Family; Visit Provider Student in an Organized Health Care Education/Training Program
PROC: 0DB48ZX Excision of Esophagogastric Junction, Via Natural or Artificial Opening Endoscopic, Diagnostic (ICD-10-PCS; CPT 43239; principal; 2025-03-04 15:30)
DX: G40.909 Epilepsy, unspecified, not intractable, without status epilepticus (principal); E87.20 Acidosis, unspecified; D64.9 Anemia, unspecified; E11.9 Type 2 diabetes mellitus without complications; E78.5 Hyperlipidemia, unspecified; F17.200 Nicotine dependence, unspecified, uncomplicated; I10 Essential (primary) hypertension; K21.9 Gastro-esophageal reflux disease without esophagitis; K59.00 Constipation, unspecified; F25.0 Schizoaffective disorder, bipolar type; F79 Unspecified intellectual disabilities; K82.8 Other specified diseases of gallbladder; Z79.84 Long term (current) use of oral hypoglycemic drugs; Z88.6 Allergy status to analgesic agent
CPT/HCPCS: 36415; 71045; 74177; 76705; 80053; 80061; 80069; 80164; 80178; 81001; 82010; 83036; 83605; 83735; 84100; 84132; 85025; 85610; 85730; 87081; 87400; 87811; 93005; 94640; 96361; 96374; 96375; 99284; A4217; A4649; J1200; J1815; J2250; J2765; J3010; J3475; J3490; J7120; Q9967; A9270

== ENCOUNTER 2025-03-06 10:29 | Inpatient (IN) | payer MEDICAID, SELFPAY ==
[2025-03-06] VITALS (10 sets, daily range): BP systolic 89–120; BP diastolic 61–75; PULSE 71–107; RESP 15–25; TEMP 35.8–36.8; O2SAT 96–100; BMI 24.3; BMI 21.5
--- NOTE | 2025-03-06 11:00 | PD.EDADULT ---
ED General RME/HPI General Chief complaint: Seizure Stated complaint: SEIZURE Time Seen by Provider: 03/06/25 10:44 Arrival date/time: 03/06/25 10:29 CC: Seizure HPI patient presents to the ER via EMS with seizure EMS report stable vital signs. truck guard and counselor at bedside state the patient has had 1 possible 2 seizures at approximately 9 AM this morning. Estimated 32nd and duration of one of the seizures. The patient is awake with slurred speech responding to noxious stimuli. Vital signs show he is mildly hypotensive but not tachycardic not warm to touch. Review the medical record show the patient was discharged from this facility for seizure disorder and chronic vomiting. Related Data Home Medications ?Medication ?Instructions ?Recorded ?Confirmed atorvastatin 40 mg tablet 40 mg PO HS 06/10/18 03/03/25 gabapentin 100 mg capsule 600 mg PO BID 06/10/18 03/03/25 lisinopril 5 mg tablet 5 mg PO QDAY 06/10/18 03/03/25 sitagliptin phosphate 100 mg tablet 50 mg PO QDAY 06/10/18 03/03/25 divalproex 500 mg tablet,delayed 1,000 mg PO HS 10/03/22 03/03/25 release docusate sodium 100 mg capsule 200 mg PO BID Psychosis 10/03/22 03/03/25 (Colace) acetaminophen 325 mg tablet 650 mg PO Q6H PRN pain 03/03/25 03/03/25 (Tylenol) albuterol (refill) 90 180 mcg inhalation Q4H PRN wheezing 03/03/25 03/03/25 mcg/actuation aerosol inhaler aluminum-mag hydroxide-simethicone 20 ml PO Q6H PRN upset stomach 03/03/25 03/03/25 400 mg-400 mg-40 mg/5 mL oral susp (Antacid Maximum Strength) carboxymethylcellulose sodium 0.7 2 drp ophthalmic (eye) HS 03/03/25 03/03/25 % eye liquid gel drops (Sterile Lubricant) cariprazine 6 mg capsule 6 mg PO QDAY 03/03/25 03/03/25 cholecalciferol (vitamin D3) 25 25 mcg PO QDAY 03/03/25 03/03/25 mcg (1,000 unit) tablet (Vitamin D3) clotrimazole 1 % topical cream 1 applic topical BID 03/03/25 03/03/25 (Antifungal (clotrimazole)) clozapine 200 mg disintegrating 400 mg PO HS 03/03/25 03/03/25 tablet diazepam 20 mg/2 spray (10 mg/0.1 20 mg intranasal Q4H PRN seizures 03/03/25 03/03/25 mL x 2) nasal spray insulin regular human 100 unit/mL 1 sliding scale dose subcut BID 03/03/25 03/03/25 injection solution (Humulin R Regular U-100 Insulin) lactulose 20 gram oral packet 20 g PO QDAY 03/03/25 03/03/25 lithium carbonate 450 mg 450 mg PO QDAY 03/03/25 03/03/25 tablet,extended release magnesium hydroxide 400 mg/5 mL 30 ml PO Q72H PRN constipation 03/03/25 03/03/25 oral suspension (Milk of Magnesia) metformin 1,000 mg tablet 1,000 mg PO BID 03/03/25 03/03/25 neomycin-polymyxin B-dexameth eye 1 drp ophthalmic (eye) 4XD 03/03/25 03/03/25 drops,suspension polyethylene glycol 3350 17 gram 17 g PO BID 03/03/25 03/03/25 oral powder packet (Miralax) sennosides 8.6 mg tablet (Laxative 17.2 mg PO HS 03/03/25 03/03/25 (sennosides)) Previous Rx's ?Medication ?Instructions ?Recorded pantoprazole 40 mg tablet,delayed 40 mg PO BID 1 month #60 tabs 03/05/25 release Allergies Allergy/AdvReac Type Severity Reaction Status Date / Time ibuprofen Allergy Verified 03/06/25 11:01 NSAIDS (Non-Steroidal Allergy Verified 03/06/25 11:01 Anti-Inflamma Review of Systems Review of Systems ROS Unobtainable: unobtainable due to mental status Past Medical History Past Medical History NEUROLOGIC: Positive Seizures and Epilepsy CARDIAC: Positive Hypercholesterolemia and Hypertension; Negative Cardiac Disorders or Congestive Heart Failure RESPIRATORY: Negative Chronic Obstructive Pulmonary Disease (COPD) or Asthma GASTROINTESTINAL: Positive Gastrointestinal Disorders (constipation, vomitting without nausea) and Gastroesophageal Reflux Disease GENITOURINARY: Negative Renal Disease ENDOCRINE: Positive Diabetes Mellitus Type 2; Negative Diabetes Mellitus Type 1 HEMATOLOGIC: Negative Sickle Cell Disease PSYCHO/SOCIAL: Positive Psychiatric Problems, Schizophrenia, Bipolar Disorder and Anxiety OTHER HISTORY: Positive Developmental Delay; Negative Blood Transfusions, Blood Transfusion Reaction or Anesthesia Reactions Social History SMOKING STATUS: Never smoker ED Exam Narrative Physical exam: [General: Obtunded appears not in any acute distress Head normocephalic HEENT: Eyes mild disconjugate gaze pupils are PERRLA mouth drooling moist membranes. Nose no rhinorrhea. Within acceptable limits Neck is supple nontender Chest equal chest rise nontender to palpation Respiratory: Clear to auscultation no wheezes crackles or rubs CV: Rate rhythm is regular no murmurs rubs or clicks Abdomen is distended secondary to body habitus soft nontender no masses positive bowel sounds all 4 quadrants Back: No CVA tenderness no spinous process tenderness from cervical spine thoracic and lumbar spine Skin: Intact no petechiae rash induration ulceration or crepitus Extremities: Withdrawing all extremities with noxious stimuli Neuro: Awake alert oriented x1 Glascow coma 15 no focal deficits] Course Quality Measures none Orders Category Date Time Status EKG (ED ONLY) *Do not use* NOW Care 03/06/25 13:[address] head/brain wo con Stat Exams 03/06/25 13:10 Completed EKG (ED Only) Stat Exams 03/06/25 13:45 Draft XR chest 1V Stat Exams 03/06/25 13:44 Completed B-Type Natriuretic Peptide Stat Lab 03/06/25 14:27 Completed Beta Hydroxybutyrate Stat Lab 03/06/25 13:33 Completed CBC Stat Lab 03/06/25 11:36 Completed CMP [Comprehensive Metabolic Panel] Stat Lab 03/06/25 11:36 Completed Drug Screen,Urine Stat Lab 03/06/25 13:45 Ordered Influenza A & B Rapid Panel Stat Lab 03/06/25 13:47 Ordered LDH (Lactate Dehydrogenase) Stat Lab 03/06/25 14:27 Completed Lactic Acid [Lactate (Lactic Acid)] Stat Lab 03/06/25 14:27 Results [place] Stat Lab 03/06/25 11:36 Completed Magnesium Stat Lab 03/06/25 14:27 Completed Partial Thromboplastin Time Stat Lab 03/06/25 14:27 Completed Procalcitonin Stat Lab 03/06/25 14:27 Completed Prothrombin Time with INR Stat Lab 03/06/25 14:27 Completed Troponin I Stat Lab 03/06/25 14:27 Completed Urinalysis Stat Lab 03/06/25 13:45 Ordered Sodium Chloride 0.9% 1000 ml [Ns] 1,000 ml Med 03/06/25 11:03 Discontinued IV 999 mls/hr Sodium Chloride 0.9% 1000 ml [Ns] 1,000 ml Med 03/06/25 13:49 Discontinued IV 999 mls/hr EEG Awake and Drowsy Routine RT 03/06/25 14:03 Ordered Vital Signs Vital signs: Vital Signs Temperature 98.2 F 03/06/25 10:45 Pulse Rate 107 H 03/06/25 10:45 Respiratory Rate 20 03/06/25 10:45 Blood Pressure 104/68 03/06/25 10:45 Pulse Oximetry (%) 97 03/06/25 10:45 Oxygen Delivery Method Room Air 03/06/25 10:45 Discharge Plan Plan Patient Disposition: Other Care w/in Hosp ([facility]) Problem List Clinical Impression: Seizure disorder, Altered mental status PA/HOG SLAUGHTERER Supervising Physician PA/HOG SLAUGHTERER Supervising Physician: Lan Montenegro ENP, MD Attestation MD Attestation The patient was seen by the midlevel practitioner. I, the co-signing physician, was present during the entire ER visit. While I did not physically examine the patient, I was available for consultation as needed. I agree with the plan and documentation. [facility] EKG EKG Interpretation narrative: EKG performed at 1354 shows a ventricular rate of 91. Of the 180 QRS of 9 0 QTc of 365 this is sinus rhythm nonspecific T wave abnormalities. Lab Interpretation Lab(s) interpretation(s): CBC shows no acute leukocytosis H&H of 12.3 and 36.0. Platelets at 203 CMP shows a glucose of 203 no other significant electrolyte imbalances or transaminitis T. bili elevation. Beta hydroxybutyrate at 0.1 [place] at 0.48. Coags within acceptable limits Imaging Provider imaging interpretation(s): Chest x-ray is interpreted by me and read by radiology as negative for any acute finding Head CT is interpreted by radiology shows no acute finding requires emergent or immediate intervention. Radiology reports / interpretation(s): Review of the patient's discharge summary from yesterday show the patient was a late alert and conversant, however now the patient is obtunded responding only to noxious stimuli which is a change. At this point in time discussed the case with Dr. Meneses who will readmit the patient to his team, I am currently awaiting a head CT as well as urine to complete out the workup and will consult Dr. Miguel for neurology. Medication Administration(s) Medication Administration History Acetaminophen (Acetaminophen 325 Mg Tablet) 650 mg PO Q6H PRN PRN Reason: Fever >100.1 Stop: 04/05/25 14:18 Atorvastatin Calcium (Atorvastatin Calcium 20 Mg Tablet) 40 mg PO HS SARA Stop: 04/05/25 20:59 Clozapine (Clozapine 50 Mg Tablet) 400 mg PO HS SARA Stop: 04/05/25 20:59 Clozapine (Clozapine 50 Mg Tablet) 150 mg PO QDAY SARA Stop: 04/06/25 08:59 Dextrose (Dextrose 50%-Water Inj 50 Ml Syringe) 25 ml IV Q15MIN PRN PRN Reason: BG 50-70 responsive npo pt Stop: 04/05/25 15:10 Dextrose (Dextrose 50%-Water Inj 50 Ml Syringe) 50 ml IV Q15MIN PRN PRN Reason: BG <50 OR BG <70 & pt unresponsive Stop: 04/05/25 15:10 Diazepam (Diazepam Inj 5 Mg/Ml Vial 2 Ml) 5 mg IVP Q3MIN PRN PRN Reason: breakthrough seizure Stop: 03/11/25 15:09 Divalproex Sodium (Divalproex Sod Dr 500 Mg Tablet.Dr) 1,000 mg PO HS SARA Stop: 04/05/25 20:59 Enoxaparin Sodium (Enoxaparin Sod Inj 40 Mg/0.4 Ml Syringe) 40 mg SC QDAY SARA Stop: 03/21/25 08:59 Glucagon (Glucagon Inj 1 Mg Vial) 1 mg IM Q15MIN PRN PRN Reason: BG <70, and no IV access Insulin Human Lispro (Insulin Lispro (Admelog) 1 Unit/0.01 Ml Unit) 0 unit SC AC [facility]; Protocol Stop: 04/05/25 16:59 Lisinopril (Lisinopril 2.5 Mg Tablet) 2.5 mg PO QDAY SARA Stop: 04/06/25 08:59 [place] Carbonate ([place] Carb 150 Mg Capsule) 450 mg PO QDAY SARA Stop: 04/06/25 08:59 Non-Formulary Medication (Cariprazine) 6 mg PO QDAY SARA Stop: 04/06/25 08:59 Pantoprazole Sodium (Pantoprazole Inj 40 Mg Vial) 40 mg IVP QDAY SARA Stop: 04/06/25 08:59 Discontinued Medications Sodium Chloride (Ns) 1,000 mls @ 999 mls/hr IV .Q1H1M ONE Stop: 03/06/25 12:03 Last Infusion: 03/06/25 12:35 Dose: Infused Documented By: Admin: 03/06/25 11:11 Dose: 999 mls/hr Documented By: SANTOSH Sodium Chloride (Ns) 1,000 mls @ 999 mls/hr IV .Q1H1M ONE Stop: 03/06/25 14:49 Last Infusion: 03/06/25 16:24 Dose: Infused Documented By: Admin: 03/06/25 14:48 Dose: 999 mls/hr Documented By: MATY
[2025-03-06] MEDS: SODIUM CHLORIDE 0.9% 1000 ML 1,000 ML 999 ML IV ×2 (11:11→14:48)
[2025-03-06 11:44] LABS: Basophils # (Auto) 0.0 Thou/mm3 (0.0-0.2); Basophils % (Auto) 1 % (0-2.5); Eosinophils # (Auto) 0.3 Thou/mm3 (0.0-0.5); Eosinophils % (Auto) 4 % (0-10); Hematocrit 36.0 % (41.0-53.0); Hemoglobin 12.3 g/dL (13.5-16.0); Immature Granulocytes Auto 0.02 Thou/mm3 (0.00-0.00); Lymphocytes # (Auto) 0.7 Thou/mm3 (1.0-4.8); Lymphocytes % (Auto) 11 % (10-50); Mean Corpuscular HGB Conc 34.2 g/dl (31.0-37.0); Mean Corpuscular Hemoglobin 33.2 pg (25.0-35.0); Mean Corpuscular Volume 97 fL (80-100); Monocytes # (Auto) 0.6 Thou/mm3 (0.0-0.8); Monocytes % (Auto) 9 % (0-12); Neutrophils # (Auto) 4.7 Thou/mm3 (1.8-7.7); Neutrophils % (Auto) 74 % (37-80); Nucleated Red Blood Cell # 0.00 Thou/mm3 (0.00-0.00); Nucleated Red Blood Cell % 0 /100 WBC (0); Platelet Count 203 Thou/mm3 (140-440); RDW Standard Deviation 48.5 fL (35.1-43.9); Red Blood Count 3.71 Miln/mm3 (4.50-5.90); White Blood Count 6.3 Thou/mm3 (3.8-10.6)
[2025-03-06 12:01] LABS: Alanine Aminotransferase 16 U/L (10-49); Albumin, Serum 3.6 gm/dL (3.5-5.0); Albumin/Globulin Ratio 1.6 (1.2-2.2); Alkaline Phosphatase 63 U/L (46-116); Anion Gap 7 (7-16); Aspartate Amino Transferase 20 U/L (0-34); BUN/Creatinine Ratio 18 Ratio (12-20); Bilirubin,Total 0.2 mg/dL (0.3-1.2); Blood Urea Nitrogen 16 mg/dL (9-23); Calcium 9.1 mg/dL (8.3-10.6); Calcium (Corrected) 9.4 mg/dL (8.5-10.1); Carbon Dioxide 30.1 mMol/L (20.0-31.0); Chloride 100 mMol/L (98-107); Creatinine (Component) 0.9 mg/dL (0.6-1.3); Estimated Creatinine Clearance 124.3 mL/min (>60); Globulin 2.2 gm/dL (2.3-3.5); Glucose 203 mg/dL (74-106); Osmolality,Calculated 281 (275-295); Potassium 4.7 mMol/L (3.4-5.1); Sodium 137 mMol/L (136-145); Total Protein 5.8 gm/dL (5.7-8.2); eGFR > 60 See Note
[2025-03-06 12:08] LABS: Lithium 0.48 mEq/L (1.00-1.20)
--- NOTE | 2025-03-06 13:10 | XR_ITS ---
Examination: CT brain head without contrast. 2-D sagittal coronal reconstructions Date and time of exam:March 06, 2025 1426 hours INDICATIONS: Recurrent seizures followed by altered mental status today COMPARISON: June 10, 2018 CTDI: vol (mGy):53.4 DLP: (mGycm):1110 Technique: Multiple CT axial sections of the brain have been obtained, 5 mm slice thickness. Contrast has not been administered. 2-D sagittal, coronal reconstructions have been obtained Low dose protocols were performed. One or more of the following dose reduction techniques were used; automated exposure control, adjustment of the mA and/or KV according to patient size, use of iterative reconstruction technique. Findings: No significant ventricular enlargement. Intra-axial or extra-axial hemorrhage density is not seen. No mass effect or midline shift Basal cisterns are not remarkable. Fourth ventricle is midline. Cranial vault intact. Impression: Negative for acute hemorrhage, mass effect or midline shift Consider elective brain MRI follow-up, pre and postcontrast, seizure protocol
--- NOTE | 2025-03-06 13:42 | PC.NURSE ---
SPOKE TO STACY LANE RN AT [facility] AND UPDATED THAT PT IS GOING TO BE ADMITTED TODAY FOR ALTERED MENTAL STATUS AND RECURRENT SEIZURES, PER ED PROVIDER.
[2025-03-06 13:43] LABS: Beta Hydroxybutyrate 0.1 mmol/L (<0.6)
--- NOTE | 2025-03-06 13:44 | XR_ITS ---
Indication: AP chest single view Technique one AP portable semiupright chest single view Date and time: March 06, 2025 1349 hours Comparison March 03, 2025 INDICATIONS: Chest pain today. FINDINGS: Subsegmental atelectasis in the lower lung zones No pulmonary edema No carter lobar pneumonia Surgical clips upper left mediastinum Reduced inspiratory effort IMPRESSION: Poor inspiratory effort chest x-ray
--- NOTE | 2025-03-06 13:45 | EKG_ITS ---
[facility] Test Date: 2025-03-06 Pat Name: AVI DRISCOLL Department: Room: - Gender: Male Technical Services Assistant: : 1980 Requested By: Lan Steward Order Number: [id number] Reading MD: Lan Steward Measurements Intervals [place] Rate: 91 P: 62 MA: 180 QRS: 56 QRSD: 90 T: -28 QT: 316 QTc: 389 Interpretive Statements SINUS RHYTHM NONSPECIFIC T-WAVE ABNORMALITY Compared to ECG 03/04/2025 16:32:40 No significant changes /store/S0/[id number]/ecg/[id number].pdf
--- NOTE | 2025-03-06 14:24 | ESHP_ITS ---
<Statement entered by Sarah Parsons MD - 03/06/25 16:49> Patient was brought back from the [facility] due to due to seizure, reportedly it was grand mal seizure, lasted almost like 30 seconds followed by lethargy. Previous CTs of the brain were negative, will consult neurologist Dr Miguel and also will do EEG. Because the patient lives in a monitored facility is less likely to be medication noncompliance. Pending neurology recommendations. Anticipated discharge within the next 48 hours. - Patient's plan and care discussed with my attending, Dr.Tingle Sarah Parsons MD Internal Medicine PGY-3 Documentation for date of: 03/06/25 HPI History of Present Illness History of present illness: Patient is a 44-year-old male with past medical history of schizoaffective disorder bipolar type, intellectual disability, type 2 diabetes, seizure disorder, GERD. He was examined with director of social work and weapons electrical engineering officer in the room neither of which saw his reported seizures. He is AOx3 with no complaints and minimal participation in the ROS, denying headache, head trauma from seizure, fall, SOB, chest pain, GI disturbances. Patient appears to be superficially obtunded, responding meekly food, doctor, food very softly without eye contact. Then when I asked him if there is anything I could do for him to make him feel better as I walked out of the room he shot straight up in the chair and very clearly announced Doctor, I want food . Per chart review of most recent admission his seizures began at 6 years old. Past Medical History: Above Family History: Brother with seizures Surgical History: Denied any. Social History: Per chart, endorses smoking hx on and off for many years (didn't remember specifics), denies alcohol hx, denies recreational drug use. States he walks just fine at baseline. Current Medications: Per Nurse at [facility]: Clozapine 400 mg at bedtime, Cariprazine 6 mg daily, lithium 450 mg daily, divalproex 1000 mg extended release at bedtime, pantoprazole 40 mg delayed release at bedtime, metformin 1000 mg twice daily AC, sitagliptin 50 mg daily, insulin sliding scale twice daily AC, atorvastatin 40 at bedtime, gabapentin 600 mg twice daily, lisinopril 5 mg daily, sennosides 17.2 mg at bedtime, polyethylene glycol, diphenhydramine 50 mg nightly, Allergies: NSAIDS ED Course: Patient presented to the ED obtunded AOx1 with noncontributory vitals and labs showing no acute leukocytosis and mild elevation of glucose to 203. Other than subtherapeutic lithium levels and lactate 2.9, beta hydrocybutyrate:0.1. EKG was noncontributory and we are awaiting head ct results. 1L NS given. Patient was admitted for workup and management of seizures All 12 systems reviewed and were negative except otherwise stated in HPI. Exam Vital Signs Temp Pulse Resp BP Pulse Ox O2 Del Method 96.5 F L 92 18 101/69 98 Room Air 03/06/25 12:26 03/06/25 12:26 03/06/25 12:03/06/25 12:41 03/06/25 12:03/06/25 12:26 Narrative Exam General: No acute distress; A&Ox3 Skin: Warm, dry, intact, no obvious rash. HENT: NCAT, EOMI, not icteric. External ears normal. No rhinorrhea. Moist mucous membranes Cardiovascular: Regular rate and rhythm, no murmur, +S1/S2. Respiratory: Lungs CTAB GI: Negative Arguello's sign, Soft, nontender, non-distended. No guarding or rebound tenderness. Extremities: no edema, no cyanosis, no clubbing. Extremity pulses present Neuro: No focal deficits observed. Conversant, moving all extremities. No overt cerebellar signs/incoordination. Psychiatric: Cooperative, superficial Results: Labs 03/06/25 11:36 03/06/25 11:36 Labs: Short CBC 03/06/25 Range/Units 11:36 WBC 6.3 D (3.8-10.6) Thou/mm3 Hgb 12.3 L (13.5-16.0) g/dL Hct 36.0 L (41.0-53.0) % Plt Count 203 (140-440) Thou/mm3 BMP 03/06/25 11:36 Sodium 137 Potassium 4.7 Chloride 100 Carbon Dioxide 30.1 BUN 16 Creatinine 0.9 Glucose 203 H Calcium 9.1 Liver Function 03/06/25 Range/Units 11:36 Total Bilirubin 0.2 L (0.3-1.2) mg/dL AST 20 (0-34) U/L ALT 16 (10-49) U/L Alkaline Phosphatase 63 (46-116) U/L Albumin 3.6 D (3.5-5.0) gm/dL Quality Measures Quality Measures VTE prophylaxis Medications Home Medications and Allergies Home Medications ?Medication ?Instructions ?Recorded ?Confirmed ?Type atorvastatin 40 mg tablet 40 mg PO HS 06/10/18 5 History gabapentin 100 mg capsule 600 mg PO BID 06/10/1803/03 History lisinopril 5 mg tablet 5 mg PO QDAY 06/10/18 History sitagliptin phosphate 100 mg tablet 50 mg PO QDAY 05/2703/03/25 History divalproex 500 mg tablet,delayed 1,000 mg PO HS 03/03/25 History release docusate sodium 100 mg capsule 200 mg PO BID Psychosis 10/03/22 03/03/25 History (Colace) acetaminophen 325 mg tablet 650 mg PO Q6H PRN pain 03/2003/03/25 History (Tylenol) albuterol (refill) 90 180 mcg inhalation Q4H PRN w heezing 03/03/25 03/03/25 History mcg/actuation aerosol inhaler aluminum-mag hydroxide-simethicone 20 ml PO Q6H PRN up set stomach 03/03/25 03/03/25 History 400 mg-400 mg-40 mg/5 mL oral susp (Antacid Maximum Strength) carboxymethylcellulose sodium 0.7 2 drp ophthalmic (ey e) HS 03/03/25 03/03/25 History % eye liquid gel drops (Sterile Lubricant) cariprazine 6 mg capsule 6 mg PO QDAY 03/03/25 History cholecalciferol (vitamin D3) 25 25 mcg PO QDAY 5 03/03/25 History mcg (1,000 unit) tablet (Vitamin D3) clotrimazole 1 % topical cream 1 applic topical BID 03/03/25 History (Antifungal (clotrimazole)) clozapine 200 mg disintegrating 400 mg PO HS 03/03/25 03/03/25 History tablet diazepam 20 mg/2 spray (10 mg/0.1 20 mg intranasal Q4H PRN seizures 03/03/25 03/03/25 History mL x 2) nasal spray insulin regular human 100 unit/mL 1 sliding scale dose subcut BID 03/03/25 03/03/25 History injection solution (Humulin R Regular U-100 Insulin) lactulose 20 gram oral packet 20 g PO QDAY 03/03/25 History lithium carbonate 450 mg 450 mg PO QDAY 03/03/25 08/03/20 History tablet,extended release magnesium hydroxide 400 mg/5 mL 30 ml PO Q72H PRN cons tipation 03/03/25 03/03/25 History oral suspension (Milk of Magnesia) metformin 1,000 mg tablet 1,000 mg PO BID 03/03/2503/20 History neomycin-polymyxin B-dexameth eye 1 drp ophthalmic (ey e) 4XD 03/03/25 03/03/25 History drops,suspension polyethylene glycol 3350 17 gram 17 g PO BID 03/03/25 03/03/25 History oral powder packet (Miralax) sennosides 8.6 mg tablet (Laxative 17.2 mg PO HS 03/0303/03/25 History (sennosides)) Allergies Allergy/AdvReac Type Severity Reaction Status Date / Time ibuprofen Allergy Verified 03/06/25 11:01 NSAIDS (Non-Steroidal Allergy Verified 03/06/25 11:01 Anti-Inflamma Visit Medications Acetaminophen (Acetaminophen 325 Mg Tablet) 650 mg PO Q6H PRN PRN Reason: Fever >101.5 Stop: 04/05/25 14:18 Sodium Chloride (Ns) 1,000 mls @ 999 mls/hr IV .Q1H1M ONE Stop: 03/06/25 14:49 Discontinued Medications Sodium Chloride (Ns) 1,000 mls @ 999 mls/hr IV .Q1H1M ONE Stop: 03/06/25 12:03 Last Infusion: 03/06/25 12:35 Dose: Infused Assessment & Plan Plan Patient is a 44-year-old male with past medical history of schizoaffective disorder bipolar type, intellectual disability, type 2 diabetes, seizure disorder, GERD. Patient was admitted for workup and management of seizures. He is a poor historian. #seizures, grand mal #Elevated lactic acid Lactic acidosis of 2.9 likely due to seizures today (post ictal lactic acidosis) versus volume loss due to vomiting history for 3 weeks on and off. Less likely biliary obstruction given gallbladder ultrasound was negative versus less likely infectious etiology versus less likely metabolic derangements. Not including his work up from last admission 2 days ago this is his first seizure in 3 years. Home med of divalproex 1000 mg extended release at bedtime. Denies head strike or any other trauma. Officer and SW unsure of patient given any medications at site to prevent seizure recurrence. Patient was given 1 L bolus of NS ? Restart home medications as appropriate - Will follow up lithium levels -Consult neuro -FUP EEG -FUP head CT #Type 2 diabetes Hemoglobin A1c on admission of 6.6 Patient has a history of type 2 diabetes for which she takes metformin 1000 mg twice daily AC and sitagliptin 50 mg daily and insulin sliding scale twice daily AC. ? Will monitor glucose, consider starting insulin sliding scale in the morning given patient is NPO for possible EGD. #normocytic anemia Patient's hemoglobin on admission 12.3 Likely due to inadequate p.o. intake On admission, patient denies dizziness, fatigue, weakness ? Will continue to monitor cbc - will monitor for signs/symptoms of bleeding #GERD Patient's home meds of pantoprazole 40 mg delayed release at bedtime - Will hold PPI pending possible EGD Hospital Management: Disposition: tele Diet: Carb consistent GI Prophylaxis: None Bowel Prophylaxis: None DVT Prophylaxis: SCD's CODE STATUS: Full Code Patient plan of care was discussed with the attending physician, Dr. Meneses & senior resident Dr. Brandon Viramontes MD PGY-1 Attending Provider Attestation/Addendum After examination of the patient and review of the clinical data I feel that this patient needs admission to the hospital for further treatment/evaluation. I have discussed and was present for the essential components of the history, physical examination, diagnosis, and treatment plan with the resident. I agree with the patient's care as documented by the resident and amended herein by me. Ramesh Meneses DO. Although this document has been carefully reviewed, there may still be some phonetic and other typographical errors. These errors are purely grammatical due to imperfections in the software program and should not be construed in any way to compromise the substance of the patient's medical care during this visit.
[2025-03-06 14:33] LABS: Lactate (Lactic Acid) 2.9 mMol/L (0.4-2.0)
[2025-03-06 14:52] LABS: INR 1.0 (0.9-1.3); Partial Thromboplastin Time 24.2 Seconds (22.0-36.0); Prothrombin Time 11.2 Seconds (9.0-12.2)
[2025-03-06 15:18] LABS: LDH (Lactate Dehydrogenase) 181 U/L (120-246); Magnesium 1.6 mg/dL (1.6-2.6); Procalcitonin 0.04 ng/ml (0.0-0.49); Troponin I < 0.002 ng/mL (0.0-0.045)
[2025-03-06 15:20] LABS: B-Type Natriuretic Peptide < 20 pg/mL (0-100)
--- NOTE | 2025-03-06 17:00 | PD.RESPRO ---
Documentation for date of: 03/06/25 Exam Vital Signs Temp Pulse Resp BP Pulse Ox O2 Del Method 97.7 F 88 22 H 114/75 97 Room Air 03/06/25 17:50 03/06/25 17:50 03/06/25 17:50 03/06/25 17:50 03/06/25 17:50 03/06/25 17:50 Objective Labs 03/06/25 11:36 03/06/25 11:36 Labs: Laboratory Results - last 24 hr 03/06/25 03/06/25 03/06/25 11:36 13:33 14:27 WBC 6.3 D RBC 3.71 L Hgb 12.3 L Hct 36.0 L MCV 97 MCH 33.2 MCHC 34.2 RDW Std Deviation 48.5 H Plt Count 203 Neut % (Auto) 74 Lymph % (Auto) 11 [place] % (Auto) 9 Eos % (Auto) 4 Baso % (Auto) 1 Neut # (Auto) 4.7 Lymph # (Auto) 0.7 L [place] # (Auto) 0.6 Eos # (Auto) 0.3 Baso # (Auto) 0.0 Immature Gran # (Auto) 0.02 H Absolute Nucleated RBC 0.00 Immature Gran % 0 Nucleated RBC % 0 PT 11.2 INR 1.0 APTT 24.2 Sodium 137 Potassium 4.7 Chloride 100 Carbon Dioxide 30.1 Anion Gap 7 BUN 16 Creatinine 0.9 Estim Creat Clear Calc 124.3 eGFR > 60 BUN/Creatinine Ratio 18 Glucose 203 H Calculated Osmolality 281 Lactic Acid 2.9 H Calcium 9.1 Corrected Calcium 9.4 Magnesium 1.6 Total Bilirubin 0.2 L AST 20 ALT 16 Alkaline Phosphatase 63 Lactate Dehydrogenase 181 Troponin I < 0.002 B-Natriuretic Peptide < 20 Total Protein 5.8 Albumin 3.6 D Globulin 2.2 L Albumin/Globulin Ratio 1.6 Beta-Hydroxybutyrate/Acetoacetate 0.1 Procalcitonin 0.04 Ur Collection Type Urine Color Urine Clarity Urine pH Ur Specific [place] Urine Protein Urine Glucose (UA) Urine Ketones Urine Blood Urine Nitrite Urine Bilirubin Urine Urobilinogen (Auto) Ur Leukocyte Esterase Urine RBC Urine WBC Ur Squamous Epith Cells Urine Bacteria Hyaline Casts Urine Opiates Screen Urine Fentanyl Screen Ur Barbiturates Screen U Amphetamin/Meth Scrn U Benzodiazepines Scrn [place] 0.48 L U Cocaine Metab Screen U Marijuana (THC) Screen 03/06/25 03/06/25 03/06/25 17:56 18:16 20:54 WBC RBC Hgb Hct MCV MCH MCHC RDW Std Deviation Plt Count Neut % (Auto) Lymph % (Auto) [place] % (Auto) Eos % (Auto) Baso % (Auto) Neut # (Auto) Lymph # (Auto) [place] # (Auto) Eos # (Auto) Baso # (Auto) Immature Gran # (Auto) Absolute Nucleated RBC Immature Gran % Nucleated RBC % PT INR APTT Sodium Potassium Chloride Carbon Dioxide Anion Gap BUN Creatinine Estim Creat Clear Calc eGFR BUN/Creatinine Ratio Glucose Calculated Osmolality Lactic Acid 3.2 H Calcium Corrected Calcium Magnesium Total Bilirubin AST ALT Alkaline Phosphatase Lactate Dehydrogenase Troponin I B-Natriuretic Peptide Total Protein Albumin Globulin Albumin/Globulin Ratio Beta-Hydroxybutyrate/Acetoacetate Procalcitonin Ur Collection Type Clean Catch Urine Color Yellow Urine Clarity Clear Urine pH 6.5 Ur Specific [place] 1.031 Urine Protein 1+ A Urine Glucose (UA) 4+ A Urine Ketones Trace Urine Blood Negative Urine Nitrite Negative Urine Bilirubin Negative Urine Urobilinogen (Auto) Negative Ur Leukocyte Esterase Negative Urine RBC 3 Urine WBC 1 Ur Squamous Epith Cells 1 Urine Bacteria None Hyaline Casts 1 Urine Opiates Screen Negative Urine Fentanyl Screen Positive A Ur Barbiturates Screen Negative U Amphetamin/Meth Scrn Negative U Benzodiazepines Scrn Positive A [place] U Cocaine Metab Screen Negative U Marijuana (THC) Screen Negative Quality Measures Quality Measures VTE prophylaxis Assessment & Plan Assessment Current Active Medications: Generic Name Dose Route Start Last Admin Trade Name Freq PRN Reason Stop Dose Admin Acetaminophen 650 mg 03/06/25 14:19 Acetaminophen 325 Mg Tablet PO 04/05/25 14:18 Q6H PRN Fever >100.1 Atorvastatin Calcium 40 mg 03/06/25 21:00 03/06/25 20:47 Atorvastatin Calcium 20 Mg Tablet PO 04/05/25 20:59 40 mg HS SARA Administration Clozapine 400 mg 03/06/25 21:00 03/06/25 21:22 Clozapine 50 Mg Tablet PO 04/05/25 20:59 400 mg HS SARA Administration Clozapine 150 mg 03/07/25 09:00 Clozapine 50 Mg Tablet PO 04/06/25 08:59 QDAY SARA Cariprazine 3 Mg 0 ea 03/07/25 08:00 Capsule PO 04/06/25 07:59 QDAY@0800 SARA Dextrose 25 ml 03/06/25 15:11 Dextrose 50%-Water Inj 50 Ml Syringe IV 04/05/25 15:10 Q15MIN PRN BG 50-70 responsive npo pt Dextrose 50 ml 03/06/25 15:11 Dextrose 50%-Water Inj 50 Ml Syringe IV 04/05/25 15:10 Q15MIN PRN BG <50 OR BG <70 & pt unresponsive Diazepam 5 mg 03/06/25 15:10 Diazepam Inj 5 Mg/Ml Vial 2 Ml IVP 03/11/25 15:09 Q3MIN PRN breakthrough seizure Divalproex Sodium 1,000 mg 03/06/25 21:00 03/06/25 20:[address] 500 Mg Tablet.Dr PO 04/05/25 20:59 1,000 mg HS [facility] Administration Enoxaparin Sodium 40 mg 03/07/25 09:00 Enoxaparin Sod Inj 40 Mg/0.4 Ml Syringe SC 03/21/25 08:59 QDAY [facility] Glucagon 1 mg 03/06/25 15:11 Glucagon Inj 1 Mg Vial IM Q15MIN PRN BG <70, and no IV access Insulin Human Lispro 0 unit 03/06/25 17:00 03/06/25 17:21 Insulin Lispro (Admelog) 1 Unit/0.01 Ml Unit SC 04/05/25 16:59 2 unit AC [facility] Administration Protocol Lisinopril 2.5 mg 03/07/25 09:00 Lisinopril 2.5 Mg Tablet PO 04/06/25 08:59 QDAY [facility] [place] Carbonate 450 mg 03/07/25 09:00 [place] Carb 150 Mg Capsule PO 04/06/25 08:59 QDAY [facility] Pantoprazole Sodium 40 mg 03/07/25 09:00 Pantoprazole Inj 40 Mg Vial IVP 04/06/25 08:59 QDAY [facility]
[2025-03-06] MEDS: INSULIN LISPRO (AdmeLOG) 1 UNIT/0.01 ML UNIT SC (17:21)
[2025-03-06 17:31] LABS: Reflex Lactate? Y
[2025-03-06 18:09] LABS: Collection Type, Urine Clean Catch
[2025-03-06 18:32] LABS: Amphetamine/Methamp Scrn,U Negative (Negative); Barbiturate Screen,Urine Negative (Negative); Benzodiazepines Screen,Urine Positive (Negative); Benzoylecgonine Screen, Ur Negative (Negative); Fentanyl Screen,Urine Positive (Negative); Opiate Screen,Urine Negative (Negative); THC Screen,Urine Negative (Negative)
[2025-03-06 18:35] LABS: Bilirubin,Urine Negative (Negative); Blood,Urine Negative (Negative); Clarity,Urine Clear (Clear/Hazy); Color,Urine Yellow (Lt Yel-Yel); Glucose, Urine 4+ (Negative); Hyaline Casts,Urine 1 /hpf (0-1); Ketones,Urine Trace (Negative); Leukocyte Esterase,Urine Negative (Negative); Nitrite,Urine Negative (Negative); PH,Urine 6.5 (5.0-7.0); Protein,Urine 1+ (Neg - Trace); RBC,Urine 3 /hpf (0-3); Specific Gravity,Urine 1.031 (1.001-1.035); Squamous Epithelial Cell,Urine 1 /hpf (0-5); Urobilinogen,Urine Negative mg/dL (0.0-1.0); WBC,Urine 1 /hpf (0-5)
--- NOTE | 2025-03-06 19:00 | ESCONSULT_ITS ---
HPI Data of Consult Requesting Physician: Erwin Meneses DO Admitting Provider: Erwin Meneses DO Attending Provider: Erwin Meneses DO Primary Care Provider: Physician No Primary/Family Consult Narrative History of present illness: CC: Seizure Patient is a 44-year-old male past medical history of HTN, HLD, diabetes mellitus type 2 insulin-dependent on sliding scale,schizoaffective disorder bipolar, seizures, and GERD who presented to the emergency room via ambulance form [facility] with chief complain of tonic-clonic seizure lasting about 30 seconds with concern with postictal stated. Per staff at bedside concern for seizure at the center and possible seizure after arriving in the emergency toom. Patient denied shortness of breath, chills, or fevers. Patient denied dysuria or increased frequency. Per caregiver at bedside, patient was constipated despite bowel regimen at center. Denied any sick contacts. Patient has continues to take all medication as prescribed. Patient was admitted for breakthrough seziure. Past Medical History: Above Family History: Brother with seizures Surgical History: Denied any. Social History: Per chart, endorses smoking hx on and off for many years (didn't remember specifics), denies alcohol hx, denies recreational drug use. States he walks just fine at baseline. Current Medications: Albuterol PRN, Atorvastatin 40 mg HS, Clozapine 150 mg Qday, Clozapine 400 mg at bedtime, Cariprazine 6 mg daily,Clotrimazole (tinea pedis), lithium 450 mg daily, lisinopril 5 mg qday, divalproex 1000 mg ER HS, pantoprazole 40 mg delayed release at bedtime, metformin 1000 mg twice daily AC, sitagliptin 50 mg daily, insulin sliding scale twice daily AC, atorvastatin 40 at bedtime, gabapentin 600 mg twice daily, lisinopril 5 mg daily, sennosides 17.2 mg at bedtime, polyethylene glycol, diphenhydramine 50 mg nightly, Allergies: NSAIDS ER Course: Vitals: 104/68, HR 107, RR 20, T 98.2, spO2 97% RA WBC 3.1, Hgb 13.5, Hct 39.1, MCV 96, Plt 176 CMP: Na 137, Na 5.5 repeat 5.0, Chloride 99, HCO3 27.4, Anion gap 11, BUN 12, Cr 0.7, GFR 60, Glucose 243, Lactic 2.9, REPEAT 3.2 Mag 1.2 (L) Troponin <0.002 BNP <20 UA negative Utox pending [place] Levels 0.48 NS Bolus X 2 EEG order Neurology following. cc:: cc: Erwin Meneses, DO Review of Systems Review of Systems Narrative Review of Systems: General appearance: NO weight change, NO fatigue, NO weakness, NO fever, NO chills, NO night sweats, No cough Skin: NO rash, NO itching, NO sores, NO moles HEENT: NO Trauma, NO nausea, NO vomiting, NO visual changes, NO blurry vision, NO double vision, NO tinnitus, NO vertigo, NO ear discharge, NO rhinorrhea, NO stuffiness, NO sneezing, NO allergy, NO epistaxis. NO Hoarseness, NO sore throat, NO swollen neck. Cardiac: NO Palpitations, NO dyspnea on exertion, NO orthopnea, NO paroxysmal nocturnal dyspnea, NO edema Respiratory: NO Shortness of Breath, NO Wheezing, NO Cough, NO Sputum, NO hemoptysis GI:NO appetite, NO nausea, NO vomiting, NO dysphagia, NO changes in bowel frequency, NO stool color, NO diarrhea, NO constipation, NO hemetemesis, NO hemorrhoids, NO melena, NO hematechezia, NO abdominal pain, NO jaundice Renal: NO frequency, NO hesitancy, NO urgency, NO hematuria, NO nocturia, NO incontinence MSK: NO muscle weakness, NO gout, NO arthritis, NO muscle stiffness Neuro: NO headaches, NO tremors, NO weakness, NO paralysis, YES seizures, NO loss of consciousness, NO numbness. Hem: NO anemia, NO easy bruising/bleeding, NO petechiae, NO purpura Endo: NO heat/cold intolerance, NO excessive sweating, NO polyuria, NO polydipsia, NO polyphagia, NO thyroid problems, YES diabetes Pysch: YES mood, NO anxiety, NO depression Exam Vital Signs Temp Pulse Resp BP Pulse Ox O2 Del Method 97.7 F 88 22 H 114/75 97 Room Air 03/06/25 17:50 03/06/25 17:50 03/06/25 17:50 03/06/25 17:50 03/06/25 17:50 03/06/25 17:50 Narrative Exam General Appearance: Alert & Oriented X2, well-nourished male who is lying in bed in no acute distress HEENT: Skull symmetrical and atraumatic. Conjunctivae pink and moist. Pupils equal, round, reactive to light and accommodation (PERRL). External ear without lesion or discharge. Straight, nares patient, mucosa pink, no discharge. Cardio: Normal Rate and Rhythm with S1 and S2 heart sounds. No murmurs or extra heart sounds auscultated. No bruits on carotid auscultation. No peripheral edema or cyanosis. Lungs: Symmetric with good expansion. Chest and back non-tender. Breath sounds vesicular without crackles, wheezing or rhonchi Abdomen: Non-tender, Non-distended, Normal Reactive Bowel Sounds Neuro: Yes Alert, YES cooperative, YES oriented to person, YES place, and NO time. Speech clear. CN grossly intact. Upper motor strength 5/5 and Lower motor strength 4/5. Sensation intact. Results Labs 03/07/25 05:36 03/07/25 05:36 Labs: Short CBC 03/06/25 Range/Units 11:36 WBC 6.3 D (3.8-10.6) Thou/mm3 Hgb 12.3 L (13.5-16.0) g/dL Hct 36.0 L (41.0-53.0) % Plt Count 203 (140-440) Thou/mm3 BMP 03/06/25 11:36 Sodium 137 Potassium 4.7 Chloride 100 Carbon Dioxide 30.1 BUN 16 Creatinine 0.9 Glucose 203 H Calcium 9.1 Cardiac Enzymes 03/06/25 Range/Units 14:27 Troponin I < 0.002 (0.0-0.045) ng/mL Liver Function 03/06/25 Range/Units 11:36 Total Bilirubin 0.2 L (0.3-1.2) mg/dL AST 20 (0-34) U/L ALT 16 (10-49) U/L Alkaline Phosphatase 63 (46-116) U/L Albumin 3.6 D (3.5-5.0) gm/dL Urine 03/06/25 Range/Units 17:56 Urine Color Yellow (Lt Yel-Yel) Urine Clarity Clear (Clear/Hazy) Urine pH 6.5 (5.0-7.0) Ur Specific [place] 1.031 (1.001-1.035) Urine Protein 1+ A (Neg - Trace) Urine Glucose (UA) 4+ A (Negative) Quality Measures Quality Measures VTE prophylaxis Medications Home Medications and Allergies Home Medications ?Medication ?Instructions ?Recorded ?Confirmed ?Type atorvastatin 40 mg tablet 40 mg PO HS 06/10/18 5 History gabapentin 100 mg capsule 600 mg PO BID 06/10/1803/06 History lisinopril 5 mg tablet 5 mg PO QDAY 06/10/18 History sitagliptin phosphate 100 mg tablet 50 mg PO QDAY 05/2703/06/25 History divalproex 500 mg tablet,delayed 1,000 mg PO HS 03/06/25 History release docusate sodium 100 mg capsule 200 mg PO BID Psychosis 10/03/22 03/06/25 History (Colace) acetaminophen 325 mg tablet 650 mg PO Q6H PRN pain 03/2003/06/25 History (Tylenol) albuterol (refill) 90 180 mcg inhalation Q4H PRN w heezing 03/03/25 03/06/25 History mcg/actuation aerosol inhaler aluminum-mag hydroxide-simethicone 20 ml PO Q6H PRN up set stomach 03/03/25 03/06/25 History 400 mg-400 mg-40 mg/5 mL oral susp (Antacid Maximum Strength) carboxymethylcellulose sodium 0.7 2 drp ophthalmic (ey e) HS 03/03/25 03/06/25 History % eye liquid gel drops (Sterile Lubricant) cariprazine 6 mg capsule 6 mg PO QDAY 03/03/25 History cholecalciferol (vitamin D3) 25 25 mcg PO QDAY 5 03/06/25 History mcg (1,000 unit) tablet (Vitamin D3) clotrimazole 1 % topical cream 1 applic topical BID 03/06/25 History (Antifungal (clotrimazole)) clozapine 200 mg disintegrating 400 mg PO HS 03/03/25 03/06/25 History tablet diazepam 20 mg/2 spray (10 mg/0.1 20 mg intranasal Q4H PRN seizures 03/03/25 03/06/25 History mL x 2) nasal spray insulin regular human 100 unit/mL 1 sliding scale dose subcut BID 03/03/25 03/06/25 History injection solution (Humulin R Regular U-100 Insulin) lactulose 20 gram oral packet 20 g PO QDAY 03/03/25 History lithium carbonate 450 mg 450 mg PO QDAY 03/03/2502/24 History tablet,extended release magnesium hydroxide 400 mg/5 mL 30 ml PO Q72H PRN cons tipation 03/03/25 03/06/25 History oral suspension (Milk of Magnesia) metformin 1,000 mg tablet 1,000 mg PO BID 03/03/2506/20 History polyethylene glycol 3350 17 gram 17 g PO BID 03/03/25 03/06/25 History oral powder packet (Miralax) Allergies Allergy/AdvReac Type Severity Reaction Status Date / Time ibuprofen Allergy Verified 03/06/25 11:01 NSAIDS (Non-Steroidal Allergy Verified 03/06/25 11:01 Anti-Inflamma Visit Medications Acetaminophen (Acetaminophen 325 Mg Tablet) 650 mg PO Q6H PRN PRN Reason: Fever >100.1 Stop: 04/05/25 14:18 Atorvastatin Calcium (Atorvastatin Calcium 20 Mg Tablet) 40 mg PO HS SARA Stop: 04/05/25 20:59 Last Admin: 03/06/25 20:47 Dose: 40 mg Clozapine (Clozapine 50 Mg Tablet) 400 mg PO HS SARA Stop: 04/05/25 20:59 Last Admin: 03/06/25 21:22 Dose: 400 mg Clozapine (Clozapine 50 Mg Tablet) 150 mg PO QDAY [facility]ARA Stop: 04/06/25 08:59 Cariprazine 3 Mg (Capsule) 0 ea PO QDAY@0800 SARA Stop: 04/06/25 07:59 Dextrose (Dextrose 50%-Water Inj 50 Ml Syringe) 25 ml IV Q15MIN PRN PRN Reason: BG 50-70 responsive npo pt Stop: 04/05/25 15:10 Dextrose (Dextrose 50%-Water Inj 50 Ml Syringe) 50 ml IV Q15MIN PRN PRN Reason: BG <50 OR BG <70 & pt unresponsive Stop: 04/05/25 15:10 Diazepam (Diazepam Inj 5 Mg/Ml Vial 2 Ml) 5 mg IVP Q3MIN PRN PRN Reason: breakthrough seizure Stop: 03/11/25 15:09 Divalproex Sodium (Divalproex Sod Dr 500 Mg Tablet.Dr) 1,000 mg PO HS [facility] Stop: 04/05/25 20:59 Last Admin: 03/06/25 20:47 Dose: 1,000 mg Enoxaparin Sodium (Enoxaparin Sod Inj 40 Mg/0.4 Ml Syringe) 40 mg SC QDAY SARA Stop: 03/21/25 08:59 Glucagon (Glucagon Inj 1 Mg Vial) 1 mg IM Q15MIN PRN PRN Reason: BG <70, and no IV access Sodium Chloride (Ns) 1,000 mls @ 999 mls/hr IV .Q1H1M ONE Stop: 03/06/25 22:48 Insulin Human Lispro (Insulin Lispro (Admelog) 1 Unit/0.01 Ml Unit) 0 unit SC AC [facility]; Protocol Stop: 04/05/25 16:59 Last Admin: 03/06/25 17:21 Dose: 2 unit Lisinopril (Lisinopril 2.5 Mg Tablet) 2.5 mg PO QDAY [facility] Stop: 04/06/25 08:59 [place] Carbonate ([place] Carb 150 Mg Capsule) 450 mg PO QDAY [facility] Stop: 04/06/25 08:59 Pantoprazole Sodium (Pantoprazole Inj 40 Mg Vial) 40 mg IVP QDAY [facility] Stop: 04/06/25 08:59 Discontinued Medications Sodium Chloride (Ns) 1,000 mls @ 999 mls/hr IV .Q1H1M ONE Stop: 03/06/25 12:03 Last Infusion: 03/06/25 12:35 Dose: Infused Sodium Chloride (Ns) 1,000 mls @ 999 mls/hr IV .Q1H1M ONE Stop: 03/06/25 14:49 Last Infusion: 03/06/25 16:24 Dose: Infused Non-Formulary Medication (Cariprazine) 6 mg PO QDAY [facility] Stop: 04/06/25 08:59 Assessment & Plan Plan Patient is a 44-year-old male past medical history of HTN, HLD, diabetes mellitus type 2 insulin-dependent on sliding scale,schizoaffective disorder bipolar, seizures, and GERD who was admitted on 03/06/2025 for possible breakthrough seizure. #Breakthrough Seizure #History of Seizure #Lactic Acid Patient presented with chief complain of tonic-clonic seizure as well as possible grand mal seizure at facility. Patient has a previous admission for break through seizure. No infectious cause noted for trigger. Tess continues to take all medication as prescribed per caregiver. Although other metabolic abnormalities could be trigger as glucose on admission 243 vs electrolyte abnormalities Diagnostics: Lactic Acid: 2.9, Repeat 3.2 CT head negative Plan: -EEG Ordered, Follow up -Continue Divalproex 1000 mg ER HS -Consider Prolactin levels and Divalproex levels, altough less beneficial given send outs. -Keep K>4 & Mg >2 -Head of Bed 30 degrees for aspiration precautions -Seizure precautions, consider adding Ativan PRN #Schizoaffective Disorder (Bipolar) Resume home medication given history of schizoaffective disorder Plan -Clozapine 150 mg Qday & Clozapine 400 mg PO HS -Cariprazine 6 mg PO Qday -[place] 450 mg PO Qday -Patient follows psychiatrist at [facility], no changes on lithium #HLD #HTN #Hypomagnesium #Hyperglycemia #Diabetes Mellitus Type II, insulin dependent #Normocytic Anemia #Constipation #GERD - The patient's plan was discussed with attending Lisa. Myriam Lovell MD PGY2 Internal Medicine Attending Provider Attestation/Addendum I have seen and examined the patient at the bedside and I agreed with resident's findings, assessment and plan of care. Continue with current dose of depakote, fu with level and EEG. Watch for any more seizures and follow sz precaution.
[2025-03-06] MEDS: ATORVASTATIN CALCIUM 20 MG TABLET 40 MG PO (20:47)
[2025-03-06] MEDS: DIVALPROEX SOD DR 500 MG TABLET.DR 1000 MG PO (20:47)
[2025-03-06 21:10] LABS: Lactate (Lactic Acid) 3.2 mMol/L (0.4-2.0)
[2025-03-06 21:43] LABS: Influenza A Ag Negative; Influenza B Ag Negative
[2025-03-07] VITALS (7 sets, daily range): BP systolic 107–126; BP diastolic 67–88; PULSE 83–109; RESP 17–24; TEMP 36–36.9; O2SAT 95–100
[2025-03-07 00:10] LABS: Reflex Lactate? Y
--- NOTE | 2025-03-07 01:14 | RESP.EEG ---
EEG completed and ready for review
[2025-03-07] MEDS: SODIUM CHLORIDE 0.9% 1000 ML 1,000 ML 999 ML IV (02:40)
[2025-03-07 06:01] LABS: Lactate (Lactic Acid) 2.4 mMol/L (0.4-2.0)
[2025-03-07 06:28] LABS: Basophils # (Auto) 0.0 Thou/mm3 (0.0-0.2); Basophils % (Auto) 1 % (0-2.5); Eosinophils # (Auto) 0.3 Thou/mm3 (0.0-0.5); Eosinophils % (Auto) 6 % (0-10); Hematocrit 37.4 % (41.0-53.0); Hemoglobin 12.4 g/dL (13.5-16.0); Immature Granulocytes Auto 0.02 Thou/mm3 (0.00-0.00); Lymphocytes # (Auto) 1.6 Thou/mm3 (1.0-4.8); Lymphocytes % (Auto) 31 % (10-50); Mean Corpuscular HGB Conc 33.2 g/dl (31.0-37.0); Mean Corpuscular Hemoglobin 33.1 pg (25.0-35.0); Mean Corpuscular Volume 100 fL (80-100); Monocytes # (Auto) 0.6 Thou/mm3 (0.0-0.8); Monocytes % (Auto) 11 % (0-12); Neutrophils # (Auto) 2.6 Thou/mm3 (1.8-7.7); Neutrophils % (Auto) 51 % (37-80); Nucleated Red Blood Cell # 0.00 Thou/mm3 (0.00-0.00); Nucleated Red Blood Cell % 0 /100 WBC (0); Platelet Count 183 Thou/mm3 (140-440); RDW Standard Deviation 49.2 fL (35.1-43.9); Red Blood Count 3.75 Miln/mm3 (4.50-5.90); White Blood Count 5.1 Thou/mm3 (3.8-10.6)
[2025-03-07 06:44] LABS: Alanine Aminotransferase 10 U/L (10-49); Albumin, Serum 3.4 gm/dL (3.5-5.0); Albumin/Globulin Ratio 1.5 (1.2-2.2); Alkaline Phosphatase 61 U/L (46-116); Anion Gap 6 (7-16); Aspartate Amino Transferase 14 U/L (0-34); BUN/Creatinine Ratio 15 Ratio (12-20); Bilirubin,Total 0.2 mg/dL (0.3-1.2); Blood Urea Nitrogen 12 mg/dL (9-23); Calcium 8.7 mg/dL (8.3-10.6); Calcium (Corrected) 9.2 mg/dL (8.5-10.1); Carbon Dioxide 27.1 mMol/L (20.0-31.0); Chloride 102 mMol/L (98-107); Creatinine (Component) 0.8 mg/dL (0.6-1.3); Estimated Creatinine Clearance 136.8 mL/min (>60); Globulin 2.2 gm/dL (2.3-3.5); Glucose 166 mg/dL (74-106); Magnesium 1.6 mg/dL (1.6-2.6); Osmolality,Calculated 273 (275-295); Phosphorous 3.1 mg/dL (2.4-5.1); Potassium 4.9 mMol/L (3.4-5.1); Sodium 135 mMol/L (136-145); Total Protein 5.6 gm/dL (5.7-8.2); eGFR > 60 See Note
[2025-03-07] MEDS: INSULIN LISPRO (AdmeLOG) 1 UNIT/0.01 ML UNIT SC (07:36)
[2025-03-07 09:00] LABS: Reflex Lactate? Y
[2025-03-07] MEDS: CARIPRAZINE 3 MG PO (09:03)
[2025-03-07] MEDS: LITHIUM CARB 150 MG CAPSULE 450 MG PO (09:05)
[2025-03-07] MEDS: ENOXAPARIN SOD INJ 40 MG/0.4 ML SYRINGE SC (09:06)
--- NOTE | 2025-03-07 10:14 | XR_ITS ---
Examination: Abdomen AP single view Technique: AP portable supine abdomen, single view Exam date and time: March 07, 2025 1046 hours INDICATIONS: Abdominal pain today FINDINGS: Multiple air distended small bowel loops Moderate air and stool throughout the colon No free air IMPRESSION: Multiple air distended small bowel loops, differential would include small bowel ileus versus early obstruction
[2025-03-07 10:48] LABS: Lactic Acid, 3 HR 2.6 mMol/L (0.4-2.0)
--- NOTE | 2025-03-07 11:47 | PC.SS ---
Patient possesses a past medical history of schizoaffective disorder bipolar type, intellectual disability, type 2 diabetes, seizure disorder, GERD.? Patient is a resident of [facility].? [employer] security at bedside.? Patient has been a resident of [facility] for approximately 2 years.? Patient is verbal.? Patient does not utilize DME to assist with ambulation.? Patient does not utilize oxygen.? Patient requires direction to complete ADL?s.? Patient?s aunt, Ludy Villaseñor; is the patient?s medical decision maker.? [facility] primary care physician is Dr. Obregon.? Plan is for the patient to return to [facility] upon obtaining medical clearance.? [facility] will arrange transportation on behalf of the patient.? Patient will possess PD[employer] staff at bedside while admitted.? No further intervention required at this time, high school social studies teacher will be available to address any further concerns.?D/c plan will be to return to facility at [address], or main line@ [phone]. Next of Kin: Ludy Villaseñor D/C Plan: [facility]
--- NOTE | 2025-03-07 12:05 | XR_ITS ---
Examination: Small bowel series AP abdomen 3 views Date and time: March 07, 2025 1229 hours INDICATIONS: Abdominal distention this week TECHNIQUE AND FINDINGS: Patient received 120 cc Gastrografin, AP supine abdomen films 1 minute, 30 minutes, 1 hour 45 minutes obtained Contrast on the 1 hour 45 minute film in dilated distended small bowel loops IMPRESSION: Small bowel obstruction pattern Recommend additional follow-up films 4:00 PM, 6:00 PM, 8:00 PM
--- NOTE | 2025-03-07 15:00 | ESPR_ITS ---
Documentation for date of: 03/07/25 Subjective Subjective Interval history: Patient is a 44-year-old male past medical history of HTN, HLD, diabetes mellitus type 2 insulin-dependent on sliding scale,schizoaffective disorder bipolar, seizures, and GERD who presented to the emergency room via ambulance form [facility] with chief complain of tonic-clonic seizure lasting about 30 seconds with concern with postictal stated. Per staff at bedside concern for seizure at the center and possible seizure after arriving in the emergency toom. Patient denied shortness of breath, chills, or fevers. Patient denied dysuria or increased frequency. Per caregiver at bedside, patient was constipated despite bowel regimen at center. Denied any sick contacts. Patient has continues to take all medication as prescribed. Patient examined at bedside. Patient denied any changes overnight. Caregiver at bedside denied any new breakthrough seizures. Patient denied any headaches or changes to vision. Patient is alert and orientated X 2 which is patient's baseline. Unable to verbalize correct date/time. Patient is currently NPO given concern for small bowel obstruction noted on KUB. No NG tube in place as patient noted to have previous bowel movement today. Pending final small bowel series. Per women's health care nurse practitioner, patient's abdomen increased abdominal distention which is NOT baseline. Primary team holding off NG tube placement. No changes to medication. Exam Vital Signs Temp Pulse Resp BP Pulse Ox O2 Del Method 97.7 F 106 H 17 113/80 98 Room Air 03/07/25 12:00 03/07/25 12:00 03/07/25 12:00 03/07/25 12:00 03/07/25 12:00 03/07/25 12:00 Narrative Exam General Appearance: Alert & Oriented X2, well-nourished male who is lying in bed in no acute distress HEENT: Skull symmetrical and atraumatic. Conjunctivae pink and moist. Pupils equal, round, reactive to light and accommodation (PERRL). External ear without lesion or discharge. Straight, nares patient, mucosa pink, no discharge. Cardio: Normal Rate and Rhythm with S1 and S2 heart sounds. No murmurs or extra heart sounds auscultated. No bruits on carotid auscultation. No peripheral edema or cyanosis. Lungs: Symmetric with good expansion. Chest and back non-tender. Breath sounds vesicular without crackles, wheezing or rhonchi Abdomen: Non-tender, Non-distended, Normal Reactive Bowel Sounds Neuro: Yes Alert, YES cooperative, YES oriented to person, YES place, and NO time. Speech clear. CN grossly intact. Upper motor strength 5/5 and Lower motor strength 4/5. Sensation intact. Objective Labs 03/07/25 05:36 03/07/25 05:36 Labs: Laboratory Results - last 24 hr 03/06/25 03/06/25 03/06/25 17:56 18:16 20:54 WBC RBC Hgb Hct MCV MCH MCHC RDW Std Deviation Plt Count Neut % (Auto) Lymph % (Auto) [place] % (Auto) Eos % (Auto) Baso % (Auto) Neut # (Auto) Lymph # (Auto) [place] # (Auto) Eos # (Auto) Baso # (Auto) Immature Gran # (Auto) Absolute Nucleated RBC Immature Gran % Nucleated RBC % Sodium Potassium Chloride Carbon Dioxide Anion Gap BUN Creatinine Estim Creat Clear Calc eGFR BUN/Creatinine Ratio Glucose Calculated Osmolality Lactic Acid 3.2 H Calcium Corrected Calcium Phosphorus Magnesium Total Bilirubin AST ALT Alkaline Phosphatase Total Protein Albumin Globulin Albumin/Globulin Ratio Ur Collection Type Clean Catch Urine Color Yellow Urine Clarity Clear Urine pH 6.5 Ur Specific [place] 1.031 Urine Protein 1+ A Urine Glucose (UA) 4+ A Urine Ketones Trace Urine Blood Negative Urine Nitrite Negative Urine Bilirubin Negative Urine Urobilinogen (Auto) Negative Ur Leukocyte Esterase Negative Urine RBC 3 Urine WBC 1 Ur Squamous Epith Cells 1 Urine Bacteria None Hyaline Casts 1 Urine Opiates Screen Negative Urine Fentanyl Screen Positive A Ur Barbiturates Screen Negative U Amphetamin/Meth Scrn Negative U Benzodiazepines Scrn Positive A U Cocaine Metab Screen Negative U Marijuana (THC) Screen Negative Influenza A (Rapid) Influenza B (Rapid) 03/06/25 03/07/25 03/07/25 21:00 05:36 10:19 WBC 5.1 RBC 3.75 L Hgb 12.4 L Hct 37.4 L MCV 100 MCH 33.1 MCHC 33.2 RDW Std Deviation 49.2 H Plt Count 183 Neut % (Auto) 51 Lymph % (Auto) 31 [place] % (Auto) 11 Eos % (Auto) 6 Baso % (Auto) 1 Neut # (Auto) 2.6 Lymph # (Auto) 1.6 [place] # (Auto) 0.6 Eos # (Auto) 0.3 Baso # (Auto) 0.0 Immature Gran # (Auto) 0.02 H Absolute Nucleated RBC 0.00 Immature Gran % 0 Nucleated RBC % 0 Sodium 135 L Potassium 4.9 Chloride 102 Carbon Dioxide 27.1 Anion Gap 6 L BUN 12 Creatinine 0.8 Estim Creat Clear Calc 136.8 eGFR > 60 BUN/Creatinine Ratio 15 Glucose 166 H Calculated Osmolality 273 L Lactic Acid 2.4 H 2.6 H Calcium 8.7 Corrected Calcium 9.2 Phosphorus 3.1 Magnesium 1.6 Total Bilirubin 0.2 L AST 14 ALT 10 Alkaline Phosphatase 61 Total Protein 5.6 L Albumin 3.4 L Globulin 2.2 L Albumin/Globulin Ratio 1.5 Ur Collection Type Urine Color Urine Clarity Urine pH Ur Specific [place] Urine Protein Urine Glucose (UA) Urine Ketones Urine Blood Urine Nitrite Urine Bilirubin Urine Urobilinogen (Auto) Ur Leukocyte Esterase Urine RBC Urine WBC Ur Squamous Epith Cells Urine Bacteria Hyaline Casts Urine Opiates Screen Urine Fentanyl Screen Ur Barbiturates Screen U Amphetamin/Meth Scrn U Benzodiazepines Scrn U Cocaine Metab Screen U Marijuana (THC) Screen Influenza A (Rapid) Negative Influenza B (Rapid) Negative Quality Measures Quality Measures VTE prophylaxis Assessment & Plan Assessment Current Active Medications: Generic Name Dose Route Start Last Admin Trade Name Freq PRN Reason Stop Dose Admin Acetaminophen 650 mg 03/06/25 14:19 Acetaminophen 325 Mg Tablet PO 04/05/25 14:18 Q6H PRN Fever >100.1 Atorvastatin Calcium 40 mg 03/06/25 21:00 03/06/25 20:47 Atorvastatin Calcium 20 Mg Tablet PO 04/05/25 20:59 40 mg HS SARA Administration Clozapine 400 mg 03/06/25 21:00 03/06/25 21:22 Clozapine 50 Mg Tablet PO 04/05/25 20:59 400 mg HS SARA Administration Clozapine 150 mg 03/07/25 09:00 03/07/25 09:04 Clozapine 50 Mg Tablet PO 04/06/25 08:59 150 mg QDAY SARA Administration Cariprazine 3 Mg 0 ea 03/07/25 08:00 03/07/25 09:03 Capsule PO 04/06/25 07:59 2 capsule QDAY@0800 SARA Administration Dextrose 25 ml 03/06/25 15:11 Dextrose 50%-Water Inj 50 Ml Syringe IV 04/05/25 15:10 Q15MIN PRN BG 50-70 responsive npo pt Dextrose 50 ml 03/06/25 15:11 Dextrose 50%-Water Inj 50 Ml Syringe IV 04/05/25 15:10 Q15MIN PRN BG <50 OR BG <70 & pt unresponsive Diazepam 5 mg 03/06/25 15:10 Diazepam Inj 5 Mg/Ml Vial 2 Ml IVP 03/11/25 15:09 Q3MIN PRN breakthrough seizure Divalproex Sodium 1,000 mg 03/06/25 21:00 03/06/25 20:[address] 500 Mg Tablet.Dr PO 04/05/25 20:59 1,000 mg HS SARA Administration Enoxaparin Sodium 40 mg 03/07/25 09:00 03/07/25 09:06 Enoxaparin Sod Inj 40 Mg/0.4 Ml Syringe SC 03/21/25 08:59 40 mg QDAY SARA Administration Glucagon 1 mg 03/06/25 15:11 Glucagon Inj 1 Mg Vial IM Q15MIN PRN BG <70, and no IV access Insulin Human Lispro 0 unit 03/06/25 17:00 03/07/25 11:12 Insulin Lispro (Admelog) 1 Unit/0.01 Ml Unit SC 04/05/25 16:59 Not Given AC SARA Protocol Lisinopril 2.5 mg 03/07/25 09:00 03/07/25 09:07 Lisinopril 2.5 Mg Tablet PO 04/06/25 08:59 2.5 mg QDAY SARA Administration [place] Carbonate 450 mg 03/07/25 09:00 03/07/25 09:05 [place] Carb 150 Mg Capsule PO 04/06/25 08:59 450 mg QDAY SARA Administration Pantoprazole Sodium 40 mg 03/07/25 09:00 03/07/25 09:07 Pantoprazole Inj 40 Mg Vial IVP 04/06/25 08:59 40 mg QDAY SARA Administration Plan Patient is a 44-year-old male past medical history of HTN, HLD, diabetes mellitus type 2 insulin-dependent on sliding scale,schizoaffective disorder bipolar, seizures, and GERD who was admitted on 03/06/2025 for possible breakthrough seizure. #Breakthrough Seizure #History of Seizure #Lactic Acid, improved. Patient presented with chief complain of tonic-clonic seizure as well as possible grand mal seizure at facility. Patient has a previous admission for break through seizure. No infectious cause noted for trigger. Tess continues to take all medication as prescribed per caregiver. Although other metabolic abnormalities could be trigger as glucose on admission 243 vs electrolyte abnormalities Diagnostics: Lactic Acid: 2.9, Repeat 3.2, 2.6 CT head negative Plan: -Continue Divalproex 1000 mg ER HS -Consider Prolactin levels and Divalproex levels, although less beneficial given send outs. -Keep K>4 & Mg >2 -Head of Bed 30 degrees for aspiration precautions -Seizure precautions, consider adding Ativan PRN #Schizoaffective Disorder (Bipolar) Resume home medication given history of schizoaffective disorder Plan -Clozapine 150 mg Qday & Clozapine 400 mg PO HS -Cariprazine 6 mg PO Qday -[place] 450 mg PO Qday -Patient follows psychiatrist at [facility], no changes on lithium #Concern for SBO #HLD #HTN #Hypomagnesium #Hyperglycemia #Diabetes Mellitus Type II, insulin dependent #Normocytic Anemia #Constipation #GERD - The patient's plan was discussed with attending Dr. Myriam Lovell MD PGY2 Internal Medicine Attending Provider Attestation/Addendum I independently reviewed the patient's chart and I agreed with resident's findings, assessment and plan of care. Imp: sz disorder with witnessed sz at [facility] and at the ER Nothing since admission. Continue with Depakote IV EEG showed paroxysmal multifocal, mainly bitemporal epileptiform discharges consistent with sz disorder. Follow sz precaution.
--- NOTE | 2025-03-07 15:04 | ESPR_ITS ---
<Statement entered by Sarah Parsons MD - 03/08/25 14:54> Patient was seen and examined at bedside. GI series were ordered. patient put NPO and switch depokit to IV. If GI series are negative we will resume his oral med. Pending Neuro recs. - Patient's plan and care discussed with my attending, Dr. Zaira Parsons MD Internal Medicine PGY-3 Documentation for date of: 03/07/25 Subjective Subjective Interval history: Patient examined bedside with guard and employment evaluator/case manager. Patient was alert and oriented, occasionally slurring words. He has not had a BM since last admit and he is currently eating. Denies NVD, SOB, chest pain, or any new seizure or lingering post-ictal state. Exam Vital Signs Temp Pulse Resp BP Pulse Ox O2 Del Method 97.4 F 91 18 126/88 H 95 Room Air 03/07/25 08:00 03/07/25 12:00 03/07/25 08:00 03/07/25 09:07 03/07/25 08:00 03/07/25 08:00 Narrative Exam General: No acute distress; A&Ox3 Skin: Warm, dry, intact, no obvious rash. HENT: NCAT, EOMI, not icteric. External ears normal. No rhinorrhea. Moist mucous membranes Cardiovascular: Regular rate and rhythm, no murmur, +S1/S2. Respiratory: Lungs CTAB GI: Negative Arguello's sign, tense, mildly TTP, distended. No guarding or rebound tenderness. Extremities: no edema, no cyanosis, no clubbing. Extremity pulses present Neuro: No focal deficits observed. Conversant, moving all extremities. No overt cerebellar signs/incoordination. Psychiatric: Cooperative Objective Labs 03/08/25 05:50 03/08/25 05:50 Labs: Laboratory Results - last 24 hr 03/06/25 03/06/25 03/06/25 14:27 17:56 18:16 WBC RBC Hgb Hct MCV MCH MCHC RDW Std Deviation Plt Count Neut % (Auto) Lymph % (Auto) [place] % (Auto) Eos % (Auto) Baso % (Auto) Neut # (Auto) Lymph # (Auto) [place] # (Auto) Eos # (Auto) Baso # (Auto) Immature Gran # (Auto) Absolute Nucleated RBC Immature Gran % Nucleated RBC % Sodium Potassium Chloride Carbon Dioxide Anion Gap BUN Creatinine Estim Creat Clear Calc eGFR BUN/Creatinine Ratio Glucose Calculated Osmolality Lactic Acid Calcium Corrected Calcium Phosphorus Magnesium 1.6 Total Bilirubin AST ALT Alkaline Phosphatase Lactate Dehydrogenase 181 Troponin I < 0.002 B-Natriuretic Peptide < 20 Total Protein Albumin Globulin Albumin/Globulin Ratio Procalcitonin 0.04 Ur Collection Type Clean Catch Urine Color Yellow Urine Clarity Clear Urine pH 6.5 Ur Specific [place] 1.031 Urine Protein 1+ A Urine Glucose (UA) 4+ A Urine Ketones Trace Urine Blood Negative Urine Nitrite Negative Urine Bilirubin Negative Urine Urobilinogen (Auto) Negative Ur Leukocyte Esterase Negative Urine RBC 3 Urine WBC 1 Ur Squamous Epith Cells 1 Urine Bacteria None Hyaline Casts 1 Urine Opiates Screen Negative Urine Fentanyl Screen Positive A Ur Barbiturates Screen Negative U Amphetamin/Meth Scrn Negative U Benzodiazepines Scrn Positive A U Cocaine Metab Screen Negative U Marijuana (THC) Screen Negative Influenza A (Rapid) Influenza B (Rapid) 03/06/25 03/06/25 03/07/25 20:54 21:00 05:36 WBC 5.1 RBC 3.75 L Hgb 12.4 L Hct 37.4 L MCV 100 MCH 33.1 MCHC 33.2 RDW Std Deviation 49.2 H Plt Count 183 Neut % (Auto) 51 Lymph % (Auto) 31 [place] % (Auto) 11 Eos % (Auto) 6 Baso % (Auto) 1 Neut # (Auto) 2.6 Lymph # (Auto) 1.6 [place] # (Auto) 0.6 Eos # (Auto) 0.3 Baso # (Auto) 0.0 Immature Gran # (Auto) 0.02 H Absolute Nucleated RBC 0.00 Immature Gran % 0 Nucleated RBC % 0 Sodium 135 L Potassium 4.9 Chloride 102 Carbon Dioxide 27.1 Anion Gap 6 L BUN 12 Creatinine 0.8 Estim Creat Clear Calc 136.8 eGFR > 60 BUN/Creatinine Ratio 15 Glucose 166 H Calculated Osmolality 273 L Lactic Acid 3.2 H 2.4 H Calcium 8.7 Corrected Calcium 9.2 Phosphorus 3.1 Magnesium 1.6 Total Bilirubin 0.2 L AST 14 ALT 10 Alkaline Phosphatase 61 Lactate Dehydrogenase Troponin I B-Natriuretic Peptide Total Protein 5.6 L Albumin 3.4 L Globulin 2.2 L Albumin/Globulin Ratio 1.5 Procalcitonin Ur Collection Type Urine Color Urine Clarity Urine pH Ur Specific [place] Urine Protein Urine Glucose (UA) Urine Ketones Urine Blood Urine Nitrite Urine Bilirubin Urine Urobilinogen (Auto) Ur Leukocyte Esterase Urine RBC Urine WBC Ur Squamous Epith Cells Urine Bacteria Hyaline Casts Urine Opiates Screen Urine Fentanyl Screen Ur Barbiturates Screen U Amphetamin/Meth Scrn U Benzodiazepines Scrn U Cocaine Metab Screen U Marijuana (THC) Screen Influenza A (Rapid) Negative Influenza B (Rapid) Negative 03/07/25 10:19 WBC RBC Hgb Hct MCV MCH MCHC RDW Std Deviation Plt Count Neut % (Auto) Lymph % (Auto) [place] % (Auto) Eos % (Auto) Baso % (Auto) Neut # (Auto) Lymph # (Auto) [place] # (Auto) Eos # (Auto) Baso # (Auto) Immature Gran # (Auto) Absolute Nucleated RBC Immature Gran % Nucleated RBC % Sodium Potassium Chloride Carbon Dioxide Anion Gap BUN Creatinine Estim Creat Clear Calc eGFR BUN/Creatinine Ratio Glucose Calculated Osmolality Lactic Acid 2.6 H Calcium Corrected Calcium Phosphorus Magnesium Total Bilirubin AST ALT Alkaline Phosphatase Lactate Dehydrogenase Troponin I B-Natriuretic Peptide Total Protein Albumin Globulin Albumin/Globulin Ratio Procalcitonin Ur Collection Type Urine Color Urine Clarity Urine pH Ur Specific [place] Urine Protein Urine Glucose (UA) Urine Ketones Urine Blood Urine Nitrite Urine Bilirubin Urine Urobilinogen (Auto) Ur Leukocyte Esterase Urine RBC Urine WBC Ur Squamous Epith Cells Urine Bacteria Hyaline Casts Urine Opiates Screen Urine Fentanyl Screen Ur Barbiturates Screen U Amphetamin/Meth Scrn U Benzodiazepines Scrn U Cocaine Metab Screen U Marijuana (THC) Screen Influenza A (Rapid) Influenza B (Rapid) Quality Measures Quality Measures VTE prophylaxis Assessment & Plan Assessment Current Active Medications: Generic Name Dose Route Start Last Admin Trade Name Freq PRN Reason Stop Dose Admin Acetaminophen 650 mg 03/06/25 14:19 Acetaminophen 325 Mg Tablet PO 04/05/25 14:18 Q6H PRN Fever >100.1 Atorvastatin Calcium 40 mg 03/06/25 21:00 03/06/25 20:47 Atorvastatin Calcium 20 Mg Tablet PO 04/05/25 20:59 40 mg HS SARA Administration Clozapine 400 mg 03/06/25 21:00 03/06/25 21:22 Clozapine 50 Mg Tablet PO 04/05/25 20:59 400 mg HS SARA Administration Clozapine 150 mg 03/07/25 09:00 03/07/25 09:04 Clozapine 50 Mg Tablet PO 04/06/25 08:59 150 mg QDAY SARA Administration Cariprazine 3 Mg 0 ea 03/07/25 08:00 03/07/25 09:03 Capsule PO 04/06/25 07:59 2 capsule QDAY@0800 SARA Administration Dextrose 25 ml 03/06/25 15:11 Dextrose 50%-Water Inj 50 Ml Syringe IV 04/05/25 15:10 Q15MIN PRN BG 50-70 responsive npo pt Dextrose 50 ml 03/06/25 15:11 Dextrose 50%-Water Inj 50 Ml Syringe IV 04/05/25 15:10 Q15MIN PRN BG <50 OR BG <70 & pt unresponsive Diazepam 5 mg 03/06/25 15:10 Diazepam Inj 5 Mg/Ml Vial 2 Ml IVP 03/11/25 15:09 Q3MIN PRN breakthrough seizure Divalproex Sodium 1,000 mg 03/06/25 21:00 03/06/25 20:[address] 500 Mg Tablet.Dr PO 04/05/25 20:59 1,000 mg HS SARA Administration Enoxaparin Sodium 40 mg 03/07/25 09:00 03/07/25 09:06 Enoxaparin Sod Inj 40 Mg/0.4 Ml Syringe SC 03/21/25 08:59 40 mg QDAY SARA Administration Glucagon 1 mg 03/06/25 15:11 Glucagon Inj 1 Mg Vial IM Q15MIN PRN BG <70, and no IV access Insulin Human Lispro 0 unit 03/06/25 17:00 03/07/25 11:12 Insulin Lispro (Admelog) 1 Unit/0.01 Ml Unit SC 04/05/25 16:59 Not Given AC [facility] Protocol Lisinopril 2.5 mg 03/07/25 09:00 03/07/25 09:07 Lisinopril 2.5 Mg Tablet PO 04/06/25 08:59 2.5 mg QDAY SARA Administration [place] Carbonate 450 mg 03/07/25 09:00 03/07/25 09:05 [place] Carb 150 Mg Capsule PO 04/06/25 08:59 450 mg QDAY SARA Administration Pantoprazole Sodium 40 mg 03/07/25 09:00 03/07/25 09:07 Pantoprazole Inj 40 Mg Vial IVP 04/06/25 08:59 40 mg QDAY SARA Administration Plan Patient is a 44-year-old male with past medical history of schizoaffective disorder bipolar type, intellectual disability, type 2 diabetes, seizure disorder, GERD. Patient was admitted for workup and management of seizures. He is a poor historian. F/t/h abd distension on PE, abd xray showed distended small bowel loops c/f SBO, work up underway to r/o SBO vs ileus. #seizures, grand mal #Elevated lactic acid likely secondary to seizure Lactic acidosis of 2.9 likely due to seizures today (post ictal lactic acidosis) versus volume loss due to vomiting history for 3 weeks on and off. Less likely biliary obstruction given gallbladder ultrasound was negative versus less likely infectious etiology versus less likely metabolic derangements. Not including his work up from last admission 2 days ago this is his first seizure in 3 years. Home med of divalproex 1000 mg extended release at bedtime. Denies head strike or any other trauma. Officer and SW unsure of patient given any medications at site to prevent seizure recurrence. Patient was given 1 L bolus of NS ? Restart home medications as appropriate - Will follow up lithium levels -Consult neuro -FUP EEG -FUP head CT -Consulted pharmacy about making psych meds IV if possible, Clozapine and [place] ok PO, VPA can change to IV, (dual treatment for seizures and bipolar disorder). we defer to pharmacy per recs. #Constipation #Possible SBO No bowel movements since last discharge. New onset distension and tense abdomen on exam Plan: Small bowel xray showed obstruction pattern -FUP Small bowel series XRay -Consider GI consult pending Xray series -NPO now -Consider NG tube placement in AM pending Xray series #Type 2 diabetes Hemoglobin A1c on admission of 6.6 Patient has a history of type 2 diabetes for which she takes metformin 1000 mg twice daily AC and sitagliptin 50 mg daily and insulin sliding scale twice daily AC. ? Will monitor glucose, consider starting insulin sliding scale in the morning given patient is NPO for possible EGD. #normocytic anemia Patient's hemoglobin on admission 12.3 Likely due to inadequate p.o. intake On admission, patient denies dizziness, fatigue, weakness ? Will continue to monitor cbc - will monitor for signs/symptoms of bleeding #GERD Patient's home meds of pantoprazole 40 mg delayed release at bedtime - Will hold PPI pending possible EGD Hospital Management: Disposition: tele Diet: Carb consistent--> Now NPO GI Prophylaxis: None Bowel Prophylaxis: None DVT Prophylaxis: SCD's CODE STATUS: Full Code Patient plan of care was discussed with the attending physician, Dr. Meneses & senior resident Dr. Brandon Viramontes MD PGY-1 Attending Provider Attestation/Addendum I have discussed and was present for the essential components of the history, physical examination, diagnosis, and treatment plan with the resident. I agree with the patient's care as documented by the resident and amended herein by me. Ramesh Meneses, DO. Although this document has been carefully reviewed, there may still be some phonetic and other typographical errors. These errors are purely grammatical due to imperfections in the software program and should not be construed in any way to compromise the substance of the patient's medical care during this visit.
--- NOTE | 2025-03-07 16:45 | XR_ITS ---
Examination: Abdomen AP single view Technique: AP portable supine abdomen, single view Exam date and time: March 07, 2025 1654 hours INDICATIONS: 4 hour delayed film post small bowel series today. Abdominal distention today FINDINGS: Contrast in distended small bowel loops IMPRESSION: Small bowel obstruction pattern Follow-up abdominal films will be obtained
--- NOTE | 2025-03-07 18:45 | XR_ITS ---
Examination: Abdomen AP single view Technique: AP portable supine abdomen, single view Exam date and time: March 07, 2025 1850 hours INDICATIONS: Abdominal distention today, 6 hour delayed film for small bowel series FINDINGS: On this study contrast appears to be partly in the colon IMPRESSION: Recommend follow-up film 10:00 PM to document contrast in the colon
[2025-03-07] MEDS: VALPROATE SOD INJ 250 MG in SODIUM CHLORIDE 0.9% 50 ML 52.5 MG IV (20:18)
[2025-03-07] MEDS: ATORVASTATIN CALCIUM 20 MG TABLET 40 MG PO (20:31)
--- NOTE | 2025-03-07 20:40 | PC.NURSE ---
Call made to pharmacy, talked to Ha, pharmacist, timing and dose of valproate verified, per verification, will dose next at 0600am.
--- NOTE | 2025-03-07 20:45 | XR_ITS ---
Examination: Abdomen AP single view Technique: AP portable supine abdomen, single view Exam date and time: March 07, 2025 2142 hours INDICATIONS: 8 hour delayed film for small bowel series today FINDINGS: Contrast does appear to be in the right colon IMPRESSION: Contrast does appear to be in the right colon. Recommend one additional follow-up film at 70 in the morning
--- NOTE | 2025-03-07 23:50 | PC.NURSE ---
Yehuda mendoza called overhead, patient become uncontrollable, demanding to eat, been explained extensively that further x-ray of his abdomen needs to be done at around 7am. Attempted to leave, 2 police aide at bedside, 2 sitter at bedside.
[2025-03-08] VITALS (8 sets, daily range): BP systolic 104–133; BP diastolic 67–85; PULSE 66–105; RESP 17–21; TEMP 36–36.3; O2SAT 95–99; BMI 21.9
[2025-03-08] MEDS: VALPROATE SOD INJ 250 MG in SODIUM CHLORIDE 0.9% 50 ML 52.5 MG IV (05:13)
[2025-03-08 06:33] LABS: Basophils # (Auto) 0.0 Thou/mm3 (0.0-0.2); Basophils % (Auto) 1 % (0-2.5); Eosinophils # (Auto) 0.3 Thou/mm3 (0.0-0.5); Eosinophils % (Auto) 8 % (0-10); Hematocrit 34.8 % (41.0-53.0); Hemoglobin 11.6 g/dL (13.5-16.0); Immature Granulocytes Auto 0.01 Thou/mm3 (0.00-0.00); Lymphocytes # (Auto) 1.2 Thou/mm3 (1.0-4.8); Lymphocytes % (Auto) 35 % (10-50); Mean Corpuscular HGB Conc 33.3 g/dl (31.0-37.0); Mean Corpuscular Hemoglobin 32.4 pg (25.0-35.0); Mean Corpuscular Volume 97 fL (80-100); Monocytes # (Auto) 0.5 Thou/mm3 (0.0-0.8); Monocytes % (Auto) 13 % (0-12); Neutrophils # (Auto) 1.5 Thou/mm3 (1.8-7.7); Neutrophils % (Auto) 43 % (37-80); Nucleated Red Blood Cell # 0.00 Thou/mm3 (0.00-0.00); Nucleated Red Blood Cell % 0 /100 WBC (0); Platelet Count 203 Thou/mm3 (140-440); RDW Standard Deviation 48.8 fL (35.1-43.9); Red Blood Count 3.58 Miln/mm3 (4.50-5.90); White Blood Count 3.4 Thou/mm3 (3.8-10.6)
[2025-03-08 07:10] LABS: Alanine Aminotransferase 16 U/L (10-49); Albumin, Serum 3.7 gm/dL (3.5-5.0); Albumin/Globulin Ratio 1.7 (1.2-2.2); Alkaline Phosphatase 64 U/L (46-116); Anion Gap 8 (7-16); Aspartate Amino Transferase 20 U/L (0-34); BUN/Creatinine Ratio 20 Ratio (12-20); Bilirubin,Total 0.4 mg/dL (0.3-1.2); Blood Urea Nitrogen 14 mg/dL (9-23); Calcium 9.6 mg/dL (8.3-10.6); Calcium (Corrected) 9.8 mg/dL (8.5-10.1); Carbon Dioxide 27.6 mMol/L (20.0-31.0); Chloride 104 mMol/L (98-107); Creatinine (Component) 0.7 mg/dL (0.6-1.3); Estimated Creatinine Clearance 159.2 mL/min (>60); Globulin 2.2 gm/dL (2.3-3.5); Glucose 113 mg/dL (74-106); Magnesium 1.6 mg/dL (1.6-2.6); Osmolality,Calculated 280 (275-295); Phosphorous 3.0 mg/dL (2.4-5.1); Potassium 4.6 mMol/L (3.4-5.1); Sodium 140 mMol/L (136-145); Total Protein 5.9 gm/dL (5.7-8.2); eGFR > 60 See Note
--- NOTE | 2025-03-08 07:45 | XR_ITS ---
Examination: Abdomen AP single view Technique: AP portable supine abdomen, single view Exam date and time: March 08, 2025 0650 hours INDICATIONS: Abdominal pain and distention yesterday, 19 hour delayed film post small bowel series. FINDINGS: Contrast almost entirely present in the colon IMPRESSION: Negative for small bowel obstruction
[2025-03-08] MEDS: ENOXAPARIN SOD INJ 40 MG/0.4 ML SYRINGE SC (08:33)
[2025-03-08] MEDS: CARIPRAZINE 3 MG PO (08:33)
[2025-03-08] MEDS: LITHIUM CARB 150 MG CAPSULE 450 MG PO (08:34)
--- NOTE | 2025-03-08 09:00 | PD.RESPRO ---
Documentation for date of: 03/08/25 Subjective Subjective Interval history: Patient is a 44-year-old male past medical history of HTN, HLD, diabetes mellitus type 2 insulin-dependent on sliding scale,schizoaffective disorder bipolar, seizures, and GERD who presented to the emergency room via ambulance form [facility] with chief complain of tonic-clonic seizure lasting about 30 seconds with concern with postictal stated. Per staff at bedside concern for seizure at the center and possible seizure after arriving in the emergency toom. Patient denied shortness of breath, chills, or fevers. Patient denied dysuria or increased frequency. Per caregiver at bedside, patient was constipated despite bowel regimen at center. Denied any sick contacts. Patient has continues to take all medication as prescribed. 03/07/2025: Patient examined at bedside. Patient denied any changes overnight. Caregiver at bedside denied any new breakthrough seizures. Patient denied any headaches or changes to vision. Patient is alert and orientated X 2 which is patient's baseline. Unable to verbalize correct date/time. Patient is currently NPO given concern for small bowel obstruction noted on KUB. No NG tube in place as patient noted to have previous bowel movement today. Pending final small bowel series. Per dog daycare provider, patient's abdomen increased abdominal distention which is NOT baseline. Primary team holding off NG tube placement. No changes to medication. 03/08/2025: Patinet examined at bedside. Patient denied overnight seizures. Overnight small bowel series xr noted to have contrast in colon, likely resolved. Patient was seen eating at bedside. Patient is alert and orientated X 3. [facility] caregiver at bedside stated he asked to call in his order for dinner at [facility]. EEG: paroxysmal multi-focal, mainly bitemporal spike and wave activity consistent w/ seizure disorder. May increase Divalproex dose by 250 mg. Follow up with Depakote levels at [facility]. Exam Vital Signs Temp Pulse Resp BP Pulse Ox O2 Del Method 97.1 F 66 18 120/79 95 Room Air 03/08/25 08:00 03/08/25 08:34 03/08/25 08:00 03/08/25 08:34 03/08/25 08:00 03/08/25 08:00 Narrative Exam General Appearance: Alert & Oriented X3, well-nourished male who is lying in bed in no acute distress HEENT: Skull symmetrical and atraumatic. Conjunctivae pink and moist. Pupils equal, round, reactive to light and accommodation (PERRL). External ear without lesion or discharge. Straight, nares patient, mucosa pink, no discharge. Cardio: Normal Rate and Rhythm with S1 and S2 heart sounds. No murmurs or extra heart sounds auscultated. No bruits on carotid auscultation. No peripheral edema or cyanosis. Lungs: Symmetric with good expansion. Chest and back non-tender. Breath sounds vesicular without crackles, wheezing or rhonchi Abdomen: Non-tender, Non-distended, Normal Reactive Bowel Sounds Neuro: Yes Alert, YES cooperative, YES oriented to person, YES place, and NO time. Speech clear. CN grossly intact. Upper motor strength 5/5 and Lower motor strength 5/5. Sensation intact. Objective Labs 03/08/25 05:50 03/08/25 05:50 Labs: Laboratory Results - last 24 hr 03/07/25 03/08/25 10:19 05:50 WBC 3.4 L RBC 3.58 L Hgb 11.6 L Hct 34.8 L MCV 97 MCH 32.4 MCHC 33.3 RDW Std Deviation 48.8 H Plt Count 203 Neut % (Auto) 43 Lymph % (Auto) 35 [place] % (Auto) 13 H Eos % (Auto) 8 Baso % (Auto) 1 Neut # (Auto) 1.5 L Lymph # (Auto) 1.2 [place] # (Auto) 0.5 Eos # (Auto) 0.3 Baso # (Auto) 0.0 Immature Gran # (Auto) 0.01 H Absolute Nucleated RBC 0.00 Immature Gran % 0 Nucleated RBC % 0 Sodium 140 Potassium 4.6 Chloride 104 Carbon Dioxide 27.6 Anion Gap 8 BUN 14 Creatinine 0.7 Estim Creat Clear Calc 159.2 eGFR > 60 BUN/Creatinine Ratio 20 Glucose 113 H D Calculated Osmolality 280 Lactic Acid 2.6 H Calcium 9.6 Corrected Calcium 9.8 Phosphorus 3.0 Magnesium 1.6 Total Bilirubin 0.4 AST 20 ALT 16 Alkaline Phosphatase 64 Total Protein 5.9 Albumin 3.7 Globulin 2.2 L Albumin/Globulin Ratio 1.7 Quality Measures Quality Measures VTE prophylaxis Assessment & Plan Assessment Current Active Medications: Generic Name Dose Route Start Last Admin Trade Name Freq PRN Reason Stop Dose Admin Acetaminophen 650 mg 03/06/25 14:19 Acetaminophen 325 Mg Tablet PO 04/05/25 14:18 Q6H PRN Fever >100.1 Atorvastatin Calcium 40 mg 03/06/25 21:00 03/07/25 20:31 Atorvastatin Calcium 20 Mg Tablet PO 04/05/25 20:59 40 mg HS SARA Administration Clozapine 400 mg 03/06/25 21:00 03/07/25 20:30 Clozapine 50 Mg Tablet PO 04/05/25 20:59 400 mg HS SARA Administration Clozapine 150 mg 03/07/25 09:00 03/08/25 08:33 Clozapine 50 Mg Tablet PO 04/06/25 08:59 150 mg QDAY SARA Administration Cariprazine 3 Mg 0 ea 03/07/25 08:00 03/08/25 08:33 Capsule PO 04/06/25 07:59 2 capsule QDAY@0800 SARA Administration Dextrose 25 ml 03/06/25 15:11 Dextrose 50%-Water Inj 50 Ml Syringe IV 04/05/25 15:10 Q15MIN PRN BG 50-70 responsive npo pt Dextrose 50 ml 03/06/25 15:11 Dextrose 50%-Water Inj 50 Ml Syringe IV 04/05/25 15:10 Q15MIN PRN BG <50 OR BG <70 & pt unresponsive Diazepam 5 mg 03/06/25 15:10 Diazepam Inj 5 Mg/Ml Vial 2 Ml IVP 03/11/25 15:09 Q3MIN PRN breakthrough seizure Divalproex Sodium 1,000 mg 03/06/25 21:00 03/06/25 20:[address] 500 Mg Tablet.Dr PO 04/05/25 20:59 1,000 mg HS SARA Administration Enoxaparin Sodium 40 mg 03/07/25 09:00 03/08/25 08:33 Enoxaparin Sod Inj 40 Mg/0.4 Ml Syringe SC 03/21/25 08:59 40 mg QDAY SARA Administration Glucagon 1 mg 03/06/25 15:11 Glucagon Inj 1 Mg Vial IM Q15MIN PRN BG <70, and no IV access Valproic Acid 250 mg/ Sodium 52.5 mls @ 52.5 mls/hr 03/07/25 20:00 03/08/25 05:13 Chloride IV 04/06/25 19:59 52.5 mls/hr Q6HR SARA Administration Insulin Human Lispro 0 unit 03/06/25 17:00 03/08/25 08:05 Insulin Lispro (Admelog) 1 Unit/0.01 Ml Unit SC 04/05/25 16:59 Not Given AC [facility] Protocol Lisinopril 2.5 mg 03/07/25 09:00 03/08/25 08:34 Lisinopril 2.5 Mg Tablet PO 04/06/25 08:59 2.5 mg QDAY SARA Administration [place] Ii Carbonate 450 mg 03/07/25 09:00 03/08/25 08:34 [place] Ii Carb 150 Mg Capsule PO 04/06/25 08:59 450 mg QDAY SARA Administration Pantoprazole Sodium 40 mg 03/07/25 09:00 03/08/25 08:32 Pantoprazole Inj 40 Mg Vial IVP 04/06/25 08:59 40 mg QDAY SARA Administration Plan Patient is a 44-year-old male past medical history of HTN, HLD, diabetes mellitus type 2 insulin-dependent on sliding scale,schizoaffective disorder bipolar, seizures, and GERD who was admitted on 03/06/2025 for possible breakthrough seizure. #Breakthrough Seizure #History of Seizure #Lactic Acid, improved. Patient presented with chief complain of tonic-clonic seizure ER as well as possible grand mal seizure at facility. Patient has a previous admission for break through seizure. No infectious cause noted for trigger. Patient continues to take all medication as prescribed per caregiver. Although other metabolic abnormalities could be trigger as glucose on admission 243 vs electrolyte abnormalities vs constipation Diagnostics: Lactic Acid: 2.9, Repeat 3.2, 2.6 CT head negative EEG: paroxysmal multi-focal, mainly bitemporal spike and wave activity consistent w/ seizure disorder. Plan: -Continue Divalproex 1000 mg ER HS-->may increase dose by 250 mg PO HS -If dose is increased, please follow up with Divalproex levels at [facility] -Keep K>4 & Mg >2 -Head of Bed 30 degrees for aspiration precautions -Seizure precautions, consider adding Ativan PRN #Schizoaffective Disorder (Bipolar) Resume home medication given history of schizoaffective disorder Plan -Clozapine 150 mg Qday & Clozapine 400 mg PO HS -Cariprazine 6 mg PO Qday -[place] Ii 450 mg PO Qday -Patient follows psychiatrist at [facility], no changes on lithium #Concern for SBO #HLD #HTN #Hypomagnesium #Hyperglycemia #Diabetes Mellitus Type II, insulin dependent #Normocytic Anemia #Constipation #GERD - The patient's plan was discussed with attending Dr. Myriam Lovell MD PGY2 Internal Medicine Attending Provider Attestation/Addendum I personally have seen and examined the patient at the bedside and agree with resident's findings, assessment and plan of care. Patient did not have any recurrent seizures after admission. He did have bowel movements yesterday and is able to tolerate oral diet, no significant abdominal distention reported. He is ambulating in the hallway without any support. As the EEG showed paroxysmal typical lipomatosis but mainly in the bitemporal area, will increase the dose of Depakote 150 mg at bedtime with close monitoring of his liver function ammonia level and Depakote level. Stable from neurostandpoint for discharge to [facility]. Will continue to follow him over there.
[2025-03-08] MEDS: DIVALPROEX SOD DR 500 MG TABLET.DR 1000 MG PO ×2 (11:41→20:26)
[2025-03-08] MEDS: INSULIN LISPRO (AdmeLOG) 1 UNIT/0.01 ML UNIT SC ×2 (11:42→17:08)
--- NOTE | 2025-03-08 14:25 | PC.SS ---
rounding note: Patient not medically ready. Possible d/c tomorrow back to [facility].
--- NOTE | 2025-03-08 16:30 | ESPR_ITS ---
<Statement entered by Raudel Taylor MD - 03/09/25 11:58> I have reviewed the note and agree with the resident's assessment & plan with exceptions as below. I have personally reviewed labs, imaging, home meds/prior records, examined the patient, formulated and discussed management plan with the IM team. Patient examined at bedside today. No acute overnight events. Neurology on consult, appreciate recommendations. Will initiate new home dose of divalproex 1250 mg at bedtime. Patient still having some abdominal pain, will reach out to GI for further recommendations in terms of a possible gastric motility disorder. Will initiate Reglan at this time. Will monitor for QTc prolongation. Repeat hematology and chemistry in AM. Anticipate discharge in the next 24 to 48 hours. Raudel Taylor, PGY-2 Internal Medicine Documentation for date of: 03/08/25 Subjective Subjective Interval history: Patient examined bedside with guard and casework manager. Patient was alert and oriented, no longer slurring words. He has had large and multiple BMs and much flatulence. He has a bright affect today and he is currently eating. When asked why his presentation now is so similar to the brief moment he asked for food on initial evaluation he responded I don't know it is just a thing I do . Denies NVD, SOB, chest pain, or any new seizure or lingering post-ictal state. personal support worker was asked outside the room if patient's seizure presentation may be for secondary gain and she responded it is a definite possibility since here is not on a sugary drink (soda) restriction like he is at the facility. A biopsy was performed and negative and he was started on reglan. Exam Vital Signs Temp Pulse Resp BP Pulse Ox O2 Del Method 97.3 F 83 18 133/85 H 96 Room Air 03/08/25 15:52 03/08/25 16:00 03/08/25 15:52 03/08/25 15:52 03/08/25 15:52 03/08/25 15:52 Narrative Exam General: No acute distress; A&Ox3 Skin: Warm, dry, intact, no obvious rash. HENT: NCAT, EOMI, not icteric. External ears normal. No rhinorrhea. Moist mucous membranes Cardiovascular: Regular rate and rhythm, no murmur, +S1/S2. Respiratory: Lungs CTAB GI: Negative Arguello's sign, soft, NTTP, nondistended. No guarding or rebound tenderness. Extremities: no edema, no cyanosis, no clubbing. Extremity pulses present Neuro: No focal deficits observed. Conversant, moving all extremities. No overt cerebellar signs/incoordination. Psychiatric: Cooperative Objective Labs 03/09/25 09:33 03/09/25 09:33 Labs: Laboratory Results - last 24 hr 03/08/25 05:50 WBC 3.4 L RBC 3.58 L Hgb 11.6 L Hct 34.8 L MCV 97 MCH 32.4 MCHC 33.3 RDW Std Deviation 48.8 H Plt Count 203 Neut % (Auto) 43 Lymph % (Auto) 35 [place] % (Auto) 13 H Eos % (Auto) 8 Baso % (Auto) 1 Neut # (Auto) 1.5 L Lymph # (Auto) 1.2 [place] # (Auto) 0.5 Eos # (Auto) 0.3 Baso # (Auto) 0.0 Immature Gran # (Auto) 0.01 H Absolute Nucleated RBC 0.00 Immature Gran % 0 Nucleated RBC % 0 Sodium 140 Potassium 4.6 Chloride 104 Carbon Dioxide 27.6 Anion Gap 8 BUN 14 Creatinine 0.7 Estim Creat Clear Calc 159.2 eGFR > 60 BUN/Creatinine Ratio 20 Glucose 113 H D Calculated Osmolality 280 Calcium 9.6 Corrected Calcium 9.8 Phosphorus 3.0 Magnesium 1.6 Total Bilirubin 0.4 AST 20 ALT 16 Alkaline Phosphatase 64 Total Protein 5.9 Albumin 3.7 Globulin 2.2 L Albumin/Globulin Ratio 1.7 Quality Measures Quality Measures VTE prophylaxis Assessment & Plan Assessment Current Active Medications: Generic Name Dose Route Start Last Admin Trade Name Kirsten PRN Reason Stop Dose Admin Acetaminophen 650 mg 03/06/25 14:19 Acetaminophen 325 Mg Tablet PO 04/05/25 14:18 Q6H PRN Fever >100.1 Atorvastatin Calcium 40 mg 03/06/25 21:00 03/07/25 20:31 Atorvastatin Calcium 20 Mg Tablet PO 04/05/25 20:59 40 mg HS SARA Administration Clozapine 400 mg 03/06/25 21:00 03/07/25 20:30 Clozapine 50 Mg Tablet PO 04/05/25 20:59 400 mg HS SRAA Administration Clozapine 150 mg 03/07/25 09:00 03/08/25 08:33 Clozapine 50 Mg Tablet PO 04/06/25 08:59 150 mg QDAY SARA Administration Cariprazine 3 Mg 0 ea 03/07/25 08:00 03/08/25 08:33 Capsule PO 04/06/25 07:59 2 capsule QDAY@0800 SARA Administration Dextrose 25 ml 03/06/25 15:11 Dextrose 50%-Water Inj 50 Ml Syringe IV 04/05/25 15:10 Q15MIN PRN BG 50-70 responsive npo pt Dextrose 50 ml 03/06/25 15:11 Dextrose 50%-Water Inj 50 Ml Syringe IV 04/05/25 15:10 Q15MIN PRN BG <50 OR BG <70 & pt unresponsive Diazepam 5 mg 03/06/25 15:10 Diazepam Inj 5 Mg/Ml Vial 2 Ml IVP 03/11/25 15:09 Q3MIN PRN breakthrough seizure Divalproex Sodium 1,000 mg 03/06/25 21:00 03/06/25 20:[address] 500 Mg Tablet.Dr PO 04/05/25 20:59 1,000 mg HS SARA Administration Enoxaparin Sodium 40 mg 03/07/25 09:00 03/08/25 08:33 Enoxaparin Sod Inj 40 Mg/0.4 Ml Syringe SC 03/21/25 08:59 40 mg QDAY SARA Administration Glucagon 1 mg 03/06/25 15:11 Glucagon Inj 1 Mg Vial IM Q15MIN PRN BG <70, and no IV access Insulin Human Lispro 0 unit 03/06/25 17:00 03/08/25 11:42 Insulin Lispro (Admelog) 1 Unit/0.01 Ml Unit SC 04/05/25 16:59 4 unit AC SARA Administration Protocol Lisinopril 2.5 mg 03/07/25 09:00 03/08/25 08:34 Lisinopril 2.5 Mg Tablet PO 04/06/25 08:59 2.5 mg QDAY SARA Administration [place] Carbonate 450 mg 03/07/25 09:00 03/08/25 08:34 [place] Carb 150 Mg Capsule PO 04/06/25 08:59 450 mg QDAY SARA Administration Metoclopramide HCl 5 mg 03/08/25 21:00 Metoclopramide 5 Mg Tablet PO 04/07/25 20:59 Q12H SARA Pantoprazole Sodium 40 mg 03/07/25 09:00 03/08/25 08:32 Pantoprazole Inj 40 Mg Vial IVP 04/06/25 08:59 40 mg QDAY SARA Administration Plan Patient is a 44-year-old male with past medical history of schizoaffective disorder bipolar type, intellectual disability, type 2 diabetes, seizure disorder, GERD. Patient was admitted for workup and management of seizures. He is a poor historian. F/t/h abd distension on PE, abd xray showed distended small bowel loops c/f SBO, work up underway to r/o SBO vs ileus. #seizures, grand mal #Elevated lactic acid likely secondary to seizure Lactic acidosis of 2.9 likely due to seizures today (post ictal lactic acidosis) versus volume loss due to vomiting history for 3 weeks on and off. Less likely biliary obstruction given gallbladder ultrasound was negative versus less likely infectious etiology versus less likely metabolic derangements. Not including his work up from last admission 2 days ago this is his first seizure in 3 years. Home med of divalproex 1000 mg extended release at bedtime. Denies head strike or any other trauma. Officer and SW unsure of patient given any medications at site to prevent seizure recurrence. Patient was given 1 L bolus of NS ? Restart home medications as appropriate - Will follow up lithium levels -Consult neuro: increase VPA to 1250mg -CT head negative - EEG: paroxysmal multi-focal, mainly bitemporal spike and wave activity consistent w/ seizure disorder. -Consulted pharmacy about making psych meds IV if possible, Clozapine and [place] ok PO, VPA can change to IV, (dual treatment for seizures and bipolar disorder). we defer to pharmacy per recs. #Constipation #Possible SBO No bowel movements since last discharge. New onset distension and tense abdomen on exam Plan: Small bowel xray showed obstruction pattern -FUP Small bowel series XRay -GI consult: Reglan 5mg PO, Past EGD bx negative -No longer NPO, diet caarb consistent -Consider NG tube placement in AM pending Xray series #Type 2 diabetes Hemoglobin A1c on admission of 6.6 Patient has a history of type 2 diabetes for which she takes metformin 1000 mg twice daily AC and sitagliptin 50 mg daily and insulin sliding scale twice daily AC. ? Will monitor glucose, consider starting insulin sliding scale in the morning given patient is NPO for possible EGD. #normocytic anemia Patient's hemoglobin on admission 12.3 Likely due to inadequate p.o. intake On admission, patient denies dizziness, fatigue, weakness ? Will continue to monitor cbc - will monitor for signs/symptoms of bleeding #GERD Patient's home meds of pantoprazole 40 mg delayed release at bedtime - Will hold PPI pending possible EGD Hospital Management: Disposition: tele Diet: Carb consistent GI Prophylaxis: None Bowel Prophylaxis: None DVT Prophylaxis: SCD's CODE STATUS: Full Code Patient plan of care was discussed with the attending physician, Dr. Meneses & senior resident Dr. Brandon Viramontes MD PGY-1 Attending Provider Attestation/Addendum I have discussed and was present for the essential components of the history, physical examination, diagnosis, and treatment plan with the resident. I agree with the patient's care as documented by the resident and amended herein by me. Ramesh Meneses DO. Although this document has been carefully reviewed, there may still be some phonetic and other typographical errors. These errors are purely grammatical due to imperfections in the software program and should not be construed in any way to compromise the substance of the patient's medical care during this visit. Patient seen and evaluated this AM. No acute events overnight, vital signs stable, patient afebrile, on room air SpO2 96%. The patient did complete a small bowel series, initial x-ray yesterday on 03/07 suggested multiple air distended small bowel loops indicative of early obstruction, repeat imaging yesterday afternoon showed small bowel obstruction pattern and by 1844 the x-ray performed demonstrated contrast partially in the colon. The final x-ray this morning was negative for small bowel obstruction and the patient was having multiple bowel movements. His stomach was also soft and much less distended than we saw on arrival. During this entire visit, the patient has been requesting double portions of food in fact he has been requesting double portions to the point that today we had to tell him no due to his blood glucose being elevated to 300, likely due to him eating so much. He has not had any episodes of nausea and vomiting since he has been admitted this visit. The patient did have recent EGD on 03/04 demonstrating esophagitis, small hiatal hernia, gastritis characterized by erythema and large amount of bile in the body of the stomach which may have been suggestive of a gastric motility disorder. Considering reports of nausea and vomiting at [facility], we did get gastroenterology recs on this visit which were to start Reglan 5 mg at morning and at night. Patient may possibly have diabetic gastroparesis however as stated, he has been eating copious amounts of food, on this admission and on the last admission. For the patient's seizure activity, he has not had any repeat seizures on this visit nor did he have any on last visit. EEG was performed and was abnormal showing paroxysmal multifocal mainly bitemporal spike and wave activity consistent with seizure disorder. Per neurology this is most likely normal activity considering the patient's seizure disorder. Per neurology recommendations however, we will increase Depakote to 1250 mg/day, dividing the doses 500 mg at night and 750 mg in the daytime. No other changes were made to other psychiatric medications noting that lithium levels were low on our testing however the patient's psychiatrist back in [facility] can adjust his dosage there if needed. Patient will also need a repeat Depakote level which can be performed at [facility] upon discharge. The patient is doing well and wants to leave however I did talk to Dr. Obregon from [facility] today, I will keep him 1 more night for monitoring.
[2025-03-08] MEDS: ATORVASTATIN CALCIUM 20 MG TABLET 40 MG PO (20:26)
--- NOTE | 2025-03-08 21:15 | PD.IMCONS ---
HPI Data of Consult Requesting Physician: Erwin Meneses DO Primary Care Provider: Physician No Primary/Family Consult Narrative Reason for consult: Abdominal distention History of present illness: 44 years old male admitted to the hospital with seizure disorder came from the [facility] I saw him during the last admission with nausea vomiting upper endoscopy has shown gastritis and esophagitis But no signs of any obstruction which is gastric outlet obstruction or peptic ulcer disease Abdominal x-ray done shows contrast in the colon and no evidence of any small bowel obstruction cc:: cc: Erwin Meneses DO Review of Systems Review of Systems Systems Reviewed: All systems reviewed, normal except as documented Past Medical History Surgical History OTHER SURGICAL HX: Schizoaffective disorder Bipolar disorder Seizure disorder Meds Home Medications and Allergies Home Medications ?Medication ?Instructions ?Recorded ?Confirmed ?Type atorvastatin 40 mg tablet 40 mg PO HS 06/10/18 03/06/25 History gabapentin 100 mg capsule 600 mg PO BID 06/10/18 03/06/25 History lisinopril 5 mg tablet 5 mg PO QDAY 06/10/18 03/06/25 History sitagliptin phosphate 100 mg tablet 50 mg PO QDAY 06/10/18 03/06/25 History docusate sodium 100 mg capsule 200 mg PO BID Psychosis 10/03/22 03/06/25 History (Colace) acetaminophen 325 mg tablet 650 mg PO Q6H PRN pain 03/03/25 03/06/25 History (Tylenol) aluminum-mag hydroxide-simethicone 20 ml PO Q6H PRN upset stomach 03/03/25 03/06/25 History 400 mg-400 mg-40 mg/5 mL oral susp (Antacid Maximum Strength) carboxymethylcellulose sodium 0.7 2 drp ophthalmic (eye) HS 03/03/25 03/06/25 History % eye liquid gel drops (Sterile Lubricant) cariprazine 6 mg capsule 6 mg PO QDAY 03/03/25 03/06/25 History cholecalciferol (vitamin D3) 25 25 mcg PO QDAY 03/03/25 03/06/25 History mcg (1,000 unit) tablet (Vitamin D3) clotrimazole 1 % topical cream 1 applic topical BID 03/03/25 03/06/25 History (Antifungal (clotrimazole)) clozapine 200 mg disintegrating 400 mg PO HS 03/03/25 03/06/25 History tablet diazepam 20 mg/2 spray (10 mg/0.1 20 mg intranasal Q4H PRN seizures 03/03/25 03/06/25 History mL x 2) nasal spray insulin regular human 100 unit/mL 1 sliding scale dose subcut BID 03/03/25 03/06/25 History injection solution (Humulin R Regular U-100 Insulin) lactulose 20 gram oral packet 20 g PO QDAY 03/03/25 03/06/25 History lithium carbonate 450 mg 450 mg PO QDAY 03/03/25 03/06/25 History tablet,extended release magnesium hydroxide 400 mg/5 mL 30 ml PO Q72H PRN constipation 03/03/25 03/06/25 History oral suspension (Milk of Magnesia) metformin 1,000 mg tablet 1,000 mg PO BID 03/03/25 03/06/25 History polyethylene glycol 3350 17 gram 17 g PO BID 03/03/25 03/06/25 History oral powder packet (Miralax) Allergies Allergy/AdvReac Type Severity Reaction Status Date / Time ibuprofen Allergy Verified 03/06/25 11:01 NSAIDS (Non-Steroidal Allergy Verified 03/06/25 11:01 Anti-Inflamma Exam Vital Signs Temp Pulse Resp BP Pulse Ox O2 Del Method 97.3 F 83 18 133/85 H 96 Room Air 03/08/25 15:52 03/08/25 16:00 03/08/25 15:52 03/08/25 15:52 03/08/25 15:52 03/08/25 15:52 Constitutional Comments: Alert oriented Routine Respiratory Exam Comments: Normal to auscultation Routine Abdominal Exam Comments: Soft nontender Results Labs 03/08/25 05:50 03/08/25 05:50 Labs: Short CBC 03/08/25 Range/Units 05:50 WBC 3.4 L (3.8-10.6) Thou/mm3 Hgb 11.6 L (13.5-16.0) g/dL Hct 34.8 L (41.0-53.0) % Plt Count 203 (140-440) Thou/mm3 BMP 03/08/25 05:50 Sodium 140 Potassium 4.6 Chloride 104 Carbon Dioxide 27.6 BUN 14 Creatinine 0.7 Glucose 113 H D Calcium 9.6 Liver Function 03/08/25 Range/Units 05:50 Total Bilirubin 0.4 (0.3-1.2) mg/dL AST 20 (0-34) U/L ALT 16 (10-49) U/L Alkaline Phosphatase 64 (46-116) U/L Albumin 3.7 (3.5-5.0) gm/dL Assessment and Plan Additional Assessment & Plan Additional Plan: # Abdominal distention resolving and there is no evidence of small bowel obstruction as the contrast is in the colon plan Advance diet as tolerated No need for any invasive GI workup Will follow the patient Other medical problems include # schizoaffective disorder # Bipolar disorder # Gastritis Continue current management
[2025-03-09] VITALS: BP 127/86; PULSE 69; PULSE 89; RESP 20; TEMP 36.3; O2SAT 96
[2025-03-09 04:00] VITALS: BP 109/70; PULSE 75; PULSE 80; RESP 19; TEMP 36.2; O2SAT 96
[2025-03-09 06:00] VITALS: BMI 21.4
[2025-03-09] MEDS: INSULIN LISPRO (AdmeLOG) 1 UNIT/0.01 ML UNIT SC ×2 (07:33→11:31)
[2025-03-09 08:00] VITALS: BP 134/73; PULSE 78; PULSE 88; RESP 18; TEMP 36.4; O2SAT 93
[2025-03-09 08:36] VITALS: BP 134/73; PULSE 78
[2025-03-09] MEDS: ENOXAPARIN SOD INJ 40 MG/0.4 ML SYRINGE SC (08:36)
[2025-03-09] MEDS: CARIPRAZINE 3 MG PO (08:36)
[2025-03-09] MEDS: LITHIUM CARB 150 MG CAPSULE 450 MG PO (08:37)
--- NOTE | 2025-03-09 09:13 | ESDS_ITS ---
<Statement entered by Raudel Taylor MD - 03/09/25 14:16> I have reviewed the note and agree with the resident's assessment & plan with exceptions as below. I have personally reviewed labs, imaging, home meds/prior records, examined the patient, formulated and discussed management plan with the IM team. Patient examined at bedside today. No acute overnight events. Patient continues to improve. Patient will be discharged on 1250 mg of divalproex at bedtime. Patient to follow-up with PCP in regards to seizure medicine management. Patient was also discharged with Reglan 5 mg twice daily. Patient will need close monitoring of QTc considering of the number of agents he is taking that can prolong this number. Patient may benefit from a gastric emptying study to evaluate for diabetic gastroparesis. Patient was then discharged with the following instructions listed below. Raudel Taylor, PGY-2 Internal Medicine Planned Discharge Date 03/09/25 DS: Providers Provider Date of admission: 03/06/25 14:14 Primary care physician: Physician No Primary/Family Admitting Provider: Erwin Meneses DO Attending Provider on Admission: Erwin Meneses DO Consults: 03/06/25 14:59 Consult to Neurology / Tele-Neurology Stat Comment: Low Li levels, c/f superficially obtunded Consulting Provider: Jt Miguel 03/08/25 13:43 Consult to Gastroenterology Stat Comment: Consulting Provider: Ann Echevarria Attending Provider on DC: Erwin Meneses DO Discharging Provider: Erwin Meneses DO DS: Diagnosis Problem List Completed Was Problem List Reviewed/Reconciled?: Yes Hospital Course Hospital Course Hospital course: Patient is a 44-year-old male with past medical history of schizoaffective disorder bipolar type, intellectual disability, type 2 diabetes, seizure disorder, GERD. In the ED patient was obtunded AOx1 with noncontributory vitals and labs showing no acute leukocytosis and mild elevation of glucose to 203. Other than subtherapeutic lithium levels and lactate 2.9, beta hydrocybutyrate:0.1. EKG and head CT were noncontributory. 1L NS given. Patient was admitted for workup and management of seizures. F/t/h abd distension on PE, abd xray showed distended small bowel loops c/f SBO. Patient then passed large amounts of bowel and flatulence. GI was consulted and provided reglan. Neuro was consulted EEG: paroxysmal multi-focal, mainly bitemporal spike and wave activity consistent w/ seizure disorder. His VPA was increased to 1250mg PM. Discharged following BM and neuro+GI approval. Discharge Instructions: Follow-up with your PCP within 1 week I am increasing your doses for your seizure medicine, divalproex, take as prescribed which will be 1250 mg at night, will need repeat Depakote levels in 1 week Recommend following up with neurology within 7 to 10 days after discharge Return to ED if your symptoms worsen or return #seizures, grand mal #Elevated lactic acid likely secondary to seizure #Constipation #Possible SBO #Type 2 diabetes #normocytic anemia #GERD Patient's plan and care discussed with my attending, Dr. Meneses, and supervising resident MD Guido Cormier MD Internal Medicine PGY-1 Time Spent with Patient Time attestation: Total time spent providing and/or coordinating discharge services: Time spent: Greater than 30 minutes Exam Vital Signs Temp Pulse Resp BP Pulse Ox O2 Del Method O2 Flow Rate 97.6 F 78 18 134/73 H 93 L Nasal Cannula 3 03/09/25 08:00 03/09/25 08:36 03/09/25 08:00 03/09/25 08:36 03/09/25 08:00 03/09/25 08:00 03/09/25 08:00 Narrative Exam General: No acute distress; A&Ox3 Skin: Warm, dry, intact, no obvious rash. HENT: NCAT, EOMI, not icteric. External ears normal. No rhinorrhea. Moist mucous membranes Cardiovascular: Regular rate and rhythm, no murmur, +S1/S2. Respiratory: Lungs CTAB GI: Negative Arguello's sign, soft, NTTP, nondistended. No guarding or rebound tenderness. Extremities: no edema, no cyanosis, no clubbing. Extremity pulses present Neuro: No focal deficits observed. Conversant, moving all extremities. No overt cerebellar signs/incoordination. Psychiatric: Cooperative Discharge Plan Plan Patient Disposition: HOME (Self Care) Disposition Comment: [facility] Patient condition on transfer: Stable Care Plan Goals: Discharge instructions Follow-up with your PCP within 1 week I am increasing your doses for your seizure medicine, divalproex, take as prescribed which will be 1250 mg at night, will need repeat Depakote levels in 1 week Recommend following up with neurology within 7 to 10 days after discharge Return to ED if your symptoms worsen or return Prescriptions/Referrals Prescriptions/Med Rec: New albuterol sulfate 90 mcg/actuation HFA aerosol inhaler 1 inh inhalation QID PRN (Reason: shortness of breath or wheezing) Qty: 6.7 0RF Rx Instructions: Take one puff up to four times a day as needed for shortness of breath divalproex 250 mg tablet,delayed release (DR/EC) 1,250 mg PO HS MDD 1250 mg 30 Days Qty: 150 0RF Rx Instructions: Take 5 tablets by mouth every night metoclopramide HCl [Reglan] 5 mg tablet 5 mg PO BID 30 Days Qty: 60 0RF Rx Instructions: Take one tablet by mouth twice a day Continued atorvastatin 40 mg Tablet 40 mg PO HS sitagliptin phosphate 100 mg Tablet 50 mg PO QDAY lisinopril 5 mg Tablet 5 mg PO QDAY gabapentin 100 mg Capsule 600 mg PO BID clozapine 150 mg tablet,disintegrating 150 mg PO QAM docusate sodium [Colace] 100 mg Capsule 200 mg PO BID clotrimazole [Antifungal (clotrimazole)] 1 % cream 1 applic topical BID Humulin R Regular U-100 Insuln 100 unit/mL solution 1 sliding scale dose subcut BID Rx Instructions: sliding scale metformin 1,000 mg tablet 1,000 mg PO BID cholecalciferol (vitamin D3) [Vitamin D3] 25 mcg (1,000 unit) tablet 25 mcg PO QDAY cariprazine 6 mg capsule 6 mg PO QDAY clozapine 200 mg tablet,disintegrating 400 mg PO HS lithium carbonate 450 mg tablet extended release 450 mg PO QDAY Sterile Lubricant 0.7 % drops, liquid gel 2 drp ophthalmic (eye) HS lactulose 20 gram packet 20 g PO QDAY polyethylene glycol 3350 [Miralax] 17 gram powder in packet 17 g PO BID diazepam 20 mg/2 spray (10mg/0.1mL x2) spray,non-aerosol 20 mg intranasal Q4H PRN (Reason: seizures) Rx Instructions: administer 1 spray in each nostril magnesium hydroxide [Milk of Magnesia] 400 mg/5 mL suspension 30 ml PO Q72H PRN (Reason: constipation) Rx Instructions: 30 mL orally PRN; acetaminophen [Tylenol] 325 mg tablet 650 mg PO Q6H PRN (Reason: pain) alum-mag hydroxide-simeth [Antacid Maximum Strength] 400-400-40 mg/5 mL suspension 20 ml PO Q6H PRN (Reason: upset stomach) pantoprazole 40 mg tablet,delayed release (DR/EC) 40 mg PO BID 30 Days Qty: 60 0RF Discontinued divalproex 500 mg tablet,delayed release (DR/EC) 1,000 mg PO HS albuterol (refill) 90 mcg/actuation aerosol 180 mcg inhalation Q4H PRN (Reason: wheezing) Referrals: No Primary/Family,Physician [Primary Care Provider] - Jt Miguel MD [Physician] - Patient/Caregiver Discharge Instructions Discharge Activity: activity as tolerated Education Materials: Diagnosing Epilepsy, Discharge Instructions for Epilepsy, Diabetes and High Blood Pressure Print Language: Iranian Stand Alone Forms: [facility]ara Award Info., Patient Portal Info Letter Discharge Order Discharge Orders: Discharge (Routine); Ordered 03/09/25 Ordered By: Raudel Taylor Quality Discharge Quality Measures VTE prophylaxis Attestestation MD Attestation I have discussed and was present for the essential components of the discharge history, physical examination, diagnosis, and discharge treatment plan with the resident. I agree with the patient's discharge care as documented by the resident and amended herein by me. Ramesh Meneses DO. Patient readmitted after discharge on 03/05 for additional reported seizure at [facility]. Patient had no additional seizure activity on this visit. CT head performed on prior visit 03/06 was negative for any acute intracranial pathology or stroke, EEG was performed on 03/08 and did demonstrate paroxysmal multifocal, mainly bitemporal spike and wave activity consistent with seizure disorder however neurology consulted and states this would not be an unusual finding for the patient's seizure disorder. As such we made adjustment to one of the patient's medications, his Depakote [id number] mg at night. Patient should have repeat Depakote level in 1 week. The patient was ambulatory without issue, did not demonstrate any abnormal neurological symptoms outside of his baseline during this hospital visit, or the last visit. As far as the patient's nausea and vomiting is concerned, he had no episodes this visit. The patient was requesting food the entire time even shortly after arrival, in fact has been requesting double portions which we had to denied due to elevated blood glucose. The patient did complete a small bowel series starting the day of arrival, initial x-ray on 03/07 suggested multiple air distended small bowel loops indicative of early obstruction, repeat imaging on 03/07 showed small bowel obstruction pattern and by 1844 on 03/07 the x-ray performed demonstrated contrast partially in the colon. The final x-ray on the morning of 03/08 was negative for small bowel obstruction and the patient was having multiple bowel movements at that time. His stomach was also soft and much less distended than we saw on arrival. The patient was tolerating diet without issue and was requesting double portions of food as stated above. We did consult gastroenterology again on this visit, EGD was performed on his prior visit significant for esophagitis, small hiatal hernia, gastritis and a large amount of bile in the body of stomach possibly suggestive of a motility disorder. Gastroenterology did not recommend any additional invasive GI workup however did recommend Reglan 5 mg twice a day. As stated above, the patient was eating copious amounts of food this visit without issue. Biopsies from the EGD came back, negative for H. pylori, negative for any intestinal metaplasia or dysplasia or malignancy in all parts of the esophagus and stomach that was biopsied. I did speak with Dr. Obregon today prior to discharge and let him know the findings, let him know the patient was having bowel movements, his stomach was soft he was tolerating p.o. intake, ambulating around the unit. I also informed him of Dr. Echevarria's recommendations as well as neurology recommendations prior to discharging the patient. The patient was stable, afebrile, tolerating p.o. intake and ambulatory at time of discharge back to [facility] Although this document has been carefully reviewed, there may still be some phonetic and other typographical errors. These errors are purely grammatical due to imperfections in the software program and should not be construed in any way to compromise the substance of the patient's medical care during this visit.
[2025-03-09 09:45] LABS: Lactate (Lactic Acid) 1.8 mMol/L (0.4-2.0)
[2025-03-09 09:55] LABS: Basophils # (Auto) 0.0 Thou/mm3 (0.0-0.2); Basophils % (Auto) 1 % (0-2.5); Eosinophils # (Auto) 0.3 Thou/mm3 (0.0-0.5); Eosinophils % (Auto) 10 % (0-10); Hematocrit 36.5 % (41.0-53.0); Hemoglobin 12.5 g/dL (13.5-16.0); Immature Granulocytes Auto 0.01 Thou/mm3 (0.00-0.00); Lymphocytes # (Auto) 0.8 Thou/mm3 (1.0-4.8); Lymphocytes % (Auto) 28 % (10-50); Mean Corpuscular HGB Conc 34.2 g/dl (31.0-37.0); Mean Corpuscular Hemoglobin 33.3 pg (25.0-35.0); Mean Corpuscular Volume 97 fL (80-100); Monocytes # (Auto) 0.4 Thou/mm3 (0.0-0.8); Monocytes % (Auto) 13 % (0-12); Neutrophils # (Auto) 1.4 Thou/mm3 (1.8-7.7); Neutrophils % (Auto) 48 % (37-80); Nucleated Red Blood Cell # 0.00 Thou/mm3 (0.00-0.00); Nucleated Red Blood Cell % 0 /100 WBC (0); Platelet Count 206 Thou/mm3 (140-440); RDW Standard Deviation 48.1 fL (35.1-43.9); Red Blood Count 3.75 Miln/mm3 (4.50-5.90); White Blood Count 3.0 Thou/mm3 (3.8-10.6)
[2025-03-09 10:11] LABS: Alanine Aminotransferase 19 U/L (10-49); Albumin, Serum 4.0 gm/dL (3.5-5.0); Albumin/Globulin Ratio 1.6 (1.2-2.2); Alkaline Phosphatase 71 U/L (46-116); Anion Gap 5 (7-16); Aspartate Amino Transferase 24 U/L (0-34); BUN/Creatinine Ratio 14 Ratio (12-20); Bilirubin,Total 0.4 mg/dL (0.3-1.2); Blood Urea Nitrogen 11 mg/dL (9-23); Calcium 10.1 mg/dL (8.3-10.6); Calcium (Corrected) 10.1 mg/dL (8.5-10.1); Carbon Dioxide 31.6 mMol/L (20.0-31.0); Chloride 99 mMol/L (98-107); Creatinine (Component) 0.8 mg/dL (0.6-1.3); Estimated Creatinine Clearance 135.6 mL/min (>60); Globulin 2.5 gm/dL (2.3-3.5); Glucose 219 mg/dL (74-106); Magnesium 1.6 mg/dL (1.6-2.6); Osmolality,Calculated 278 (275-295); Phosphorous 2.8 mg/dL (2.4-5.1); Potassium 4.6 mMol/L (3.4-5.1); Sodium 136 mMol/L (136-145); Total Protein 6.5 gm/dL (5.7-8.2); eGFR > 60 See Note
[2025-03-09 12:00] VITALS: BP 110/73; PULSE 83; PULSE 85; RESP 18; TEMP 36.2; O2SAT 97
--- NOTE | 2025-03-09 12:00 | ESPR_ITS ---
Documentation for date of: 03/09/25 Subjective Subjective Interval history: Patient is a 44-year-old male past medical history of HTN, HLD, diabetes mellitus type 2 insulin-dependent on sliding scale,schizoaffective disorder bipolar, seizures, and GERD who presented to the emergency room via ambulance form [facility] with chief complain of tonic-clonic seizure lasting about 30 seconds with concern with postictal stated. Per staff at bedside concern for seizure at the center and possible seizure after arriving in the emergency toom. Patient denied shortness of breath, chills, or fevers. Patient denied dysuria or increased frequency. Per caregiver at bedside, patient was constipated despite bowel regimen at [place]. Denied any sick contacts. Patient has continues to take all medication as prescribed. 03/07/2025: Patient examined at bedside. Patient denied any changes overnight. Caregiver at bedside denied any new breakthrough seizures. Patient denied any headaches or changes to vision. Patient is alert and orientated X 2 which is patient's baseline. Unable to verbalize correct date/time. Patient is currently NPO given concern for small bowel obstruction noted on KUB. No NG tube in place as patient noted to have previous bowel movement today. Pending final small bowel series. Per career technical education teacher, patient's abdomen increased abdominal distention which is NOT baseline. Primary team holding off NG tube placement. No changes to medication. 03/08/2025: Patinet examined at bedside. Patient denied overnight seizures. Overnight small bowel series xr noted to have contrast in colon, likely resolved. Patient was seen eating at bedside. Patient is alert and orientated X 3. [facility] caregiver at bedside stated he asked to call in his order for dinner at [facility]. EEG: paroxysmal multi-focal, mainly bitemporal spike and wave activity consistent w/ seizure disorder. May increase Divalproex dose by 250 mg. Follow up with Depakote levels at [facility]. 03/09/2025: No overnight events. No seizures. Patient is set to be discharge today to [facility]. Patient is alert and Orientated. Follow up with Divalpreox at [facility] and [facility] for AST/ALT levels. Exam Vital Signs Temp Pulse Resp BP Pulse Ox O2 Del Method O2 Flow Rate 97.1 F 83 18 110/73 97 Room Air 3 03/09/25 12:00 03/09/25 12:00 03/09/25 12:00 03/09/25 12:00 03/09/25 12:00 03/09/25 12:00 03/09/25 08:00 Narrative Exam General Appearance: Alert & Oriented X3, well-nourished male who is lying in bed in no acute distress HEENT: Skull symmetrical and atraumatic. Conjunctivae pink and moist. Pupils equal, round, reactive to light and accommodation (PERRL). External ear without lesion or discharge. Straight, nares patient, mucosa pink, no discharge. Cardio: Normal Rate and Rhythm with S1 and S2 heart sounds. No murmurs or extra heart sounds auscultated. No bruits on carotid auscultation. No peripheral edema or cyanosis. Lungs: Symmetric with good expansion. Chest and back non-tender. Breath sounds vesicular without crackles, wheezing or rhonchi Abdomen: Non-tender, Non-distended, Normal Reactive Bowel Sounds Neuro: Yes Alert, YES cooperative, YES oriented to person, YES place, and NO time. Speech clear. CN grossly intact. Upper motor strength 5/5 and Lower motor strength 5/5. Sensation intact. Objective Labs 03/09/25 09:33 03/09/25 09:33 Labs: Laboratory Results - last 24 hr 03/09/25 09:33 WBC 3.0 L RBC 3.75 L Hgb 12.5 L Hct 36.5 L MCV 97 MCH 33.3 MCHC 34.2 RDW Std Deviation 48.1 H Plt Count 206 Neut % (Auto) 48 Lymph % (Auto) 28 [place] % (Auto) 13 H Eos % (Auto) 10 Baso % (Auto) 1 Neut # (Auto) 1.4 L Lymph # (Auto) 0.8 L [place] # (Auto) 0.4 Eos # (Auto) 0.3 Baso # (Auto) 0.0 Immature Gran # (Auto) 0.01 H Absolute Nucleated RBC 0.00 Immature Gran % 0 Nucleated RBC % 0 Sodium 136 Potassium 4.6 Chloride 99 Carbon Dioxide 31.6 H Anion Gap 5 L BUN 11 Creatinine 0.8 Estim Creat Clear Calc 135.6 eGFR > 60 BUN/Creatinine Ratio 14 Glucose 219 H D Calculated Osmolality 278 Lactic Acid 1.8 Calcium 10.1 Corrected Calcium 10.1 Phosphorus 2.8 Magnesium 1.6 Total Bilirubin 0.4 AST 24 ALT 19 Alkaline Phosphatase 71 Total Protein 6.5 Albumin 4.0 Globulin 2.5 Albumin/Globulin Ratio 1.6 Quality Measures Quality Measures VTE prophylaxis Assessment & Plan Plan Patient is a 44-year-old male past medical history of HTN, HLD, diabetes mellitus type 2 insulin-dependent on sliding scale,schizoaffective disorder bipolar, seizures, and GERD who was admitted on 03/06/2025 for possible breakthrough seizure. #Breakthrough Seizure #History of Seizure #Lactic Acid, improved. Patient presented with chief complain of tonic-clonic seizure ER as well as possible grand mal seizure at facility. Patient has a previous admission for break through seizure. No infectious cause noted for trigger. Patient continues to take all medication as prescribed per caregiver. Although other metabolic abnormalities could be trigger as glucose on admission 243 vs electrolyte abnormalities vs constipation Diagnostics: Lactic Acid: 2.9, Repeat 3.2, 2.6 CT head negative EEG: paroxysmal multi-focal, mainly bitemporal spike and wave activity consistent w/ seizure disorder. Plan: -Continue Divalproex 1000 mg ER HS-->1250 mg PO HS -If dose is increased, please follow up with Divalproex levels & CMP at [facility] -Keep K>4 & Mg >2 -Head of Bed 30 degrees for aspiration precautions -Seizure precautions, consider adding Ativan PRN #Schizoaffective Disorder (Bipolar) Resume home medication given history of schizoaffective disorder Plan -Clozapine 150 mg Qday & Clozapine 400 mg PO HS -Cariprazine 6 mg PO Qday -[place] 450 mg PO Qday -Patient follows psychiatrist at [facility], no changes on lithium #SBO, Resolved. #HLD #HTN #Hypomagnesium #Hyperglycemia #Diabetes Mellitus Type II, insulin dependent #Normocytic Anemia #Constipation #GERD - The patient's plan was discussed with attending Dr. Myriam Lovell MD PGY2 Internal Medicine Attending Provider Attestation/Addendum I independently reviewed the patient's chart and I agree with the resident's findings, assessment and plan of care. Patient has not had any seizures since admission. Stable for discharge on Depakote 1250 mg extended release with close monitoring of Depakote level, ammonia level and the liver enzymes. I will follow him up in the specialty clinic at [facility].
--- NOTE | 2025-03-09 12:03 | PC.SS ---
ss update: d/c today back to [facility]
--- NOTE | 2025-03-09 21:55 | ESPR_ITS ---
Documentation for date of: 03/09/25 Subjective Subjective Interval history: Late entry for the note okay to be discharged back to the [facility] I will follow the patient there Case discussed with internal medicine team Exam Vital Signs Temp Pulse Resp BP Pulse Ox O2 Del Method O2 Flow Rate 97.1 F 83 18 110/73 97 Room Air 3 03/09/25 12:00 03/09/25 12:00 03/09/25 12:00 03/09/25 12:00 03/09/25 12:00 03/09/25 12:00 03/09/25 08:00 Objective Labs 03/09/25 09:33 03/09/25 09:33 Labs: Laboratory Results - last 24 hr 03/09/25 09:33 WBC 3.0 L RBC 3.75 L Hgb 12.5 L Hct 36.5 L MCV 97 MCH 33.3 MCHC 34.2 RDW Std Deviation 48.1 H Plt Count 206 Neut % (Auto) 48 Lymph % (Auto) 28 [place] % (Auto) 13 H Eos % (Auto) 10 Baso % (Auto) 1 Neut # (Auto) 1.4 L Lymph # (Auto) 0.8 L [place] # (Auto) 0.4 Eos # (Auto) 0.3 Baso # (Auto) 0.0 Immature Gran # (Auto) 0.01 H Absolute Nucleated RBC 0.00 Immature Gran % 0 Nucleated RBC % 0 Sodium 136 Potassium 4.6 Chloride 99 Carbon Dioxide 31.6 H Anion Gap 5 L BUN 11 Creatinine 0.8 Estim Creat Clear Calc 135.6 eGFR > 60 BUN/Creatinine Ratio 14 Glucose 219 H D Calculated Osmolality 278 Lactic Acid 1.8 Calcium 10.1 Corrected Calcium 10.1 Phosphorus 2.8 Magnesium 1.6 Total Bilirubin 0.4 AST 24 ALT 19 Alkaline Phosphatase 71 Total Protein 6.5 Albumin 4.0 Globulin 2.5 Albumin/Globulin Ratio 1.6 Impressions Impression: Abdominal distention improved obstipation constipation patient had a bowel movement okay to discharge to be followed at the [facility] by me At the GI clinic Assessment & Plan A&P Narrative # Abdominal distention resolving and there is no evidence of small bowel obstruction as the contrast is in the colon plan Advance diet as tolerated No need for any invasive GI workup Will follow the patient Other medical problems include # schizoaffective disorder # Bipolar disorder # Gastritis Continue current management Time Spent With Patient Time: Total time spent is greater than 50% in coordination of care (as documented) at patient's floor/unit and/or counseling patient:
[2025-03-13 07:04] LABS: Prolactin* 6.0 ng/mL (2.0-18.0)
== END 2025-03-09 12:30 | disposition home or self-care (01) | DRG 53 ==
LOC: SERX 12:28 → SERHOLD 14:54 → S3NX 03-07 06:06
PROVIDERS: Registered Nurse General Practice; Admitting Provider Student in an Organized Health Care Education/Training Program; Emergency Provider Family Medicine; Visit Provider Student in an Organized Health Care Education/Training Program
DX: G40.409 Other generalized epilepsy and epileptic syndromes, not intractable, without status epilepticus (principal); F79 Unspecified intellectual disabilities; F25.0 Schizoaffective disorder, bipolar type; K21.9 Gastro-esophageal reflux disease without esophagitis; Z87.891 Personal history of nicotine dependence; D64.89 Other specified anemias; I10 Essential (primary) hypertension; E78.5 Hyperlipidemia, unspecified; E83.42 Hypomagnesemia; E11.65 Type 2 diabetes mellitus with hyperglycemia; E87.20 Acidosis, unspecified; K56.609 Unspecified intestinal obstruction, unspecified as to partial versus complete obstruction; E88.2 Lipomatosis, not elsewhere classified; K21.00 Gastro-esophageal reflux disease with esophagitis, without bleeding; E11.43 Type 2 diabetes mellitus with diabetic autonomic (poly)neuropathy; K29.70 Gastritis, unspecified, without bleeding; F17.200 Nicotine dependence, unspecified, uncomplicated; K31.84 Gastroparesis; Z79.4 Long term (current) use of insulin; Z79.84 Long term (current) use of oral hypoglycemic drugs; Z79.899 Other long term (current) drug therapy; Z88.3 Allergy status to other anti-infective agents; Z88.6 Allergy status to analgesic agent
CPT/HCPCS: 36415; 70450; 71045; 74018; 74250; 80053; 80178; 80307; 81001; 82010; 83605; 83615; 83735; 83880; 84100; 84145; 84146; 84484; 85025; 85610; 85730; 87081; 87502; 93005; 93225; 95816; 96361; 96374; 99284; J1650; J1815; J2470; J7030; Q9963; A9270